=== PATIENT | male | born 1950 | race Caucasian/White ===

== ENCOUNTER 2016-11-22 06:31 | Day surgery (SDC) | payer MEDICARE ==
[~2016-11-22] VITALS: Ht 177.8 cm; Wt 97.7 kg
[~2016-11-22 06:31] MED LIST: AMOXICILLIN500 M1 PO; ASPIRIN EC81 M1 PO; BAYER CHEWABLE81 MG PO; BETAPACE 120 M120 MG PO; BETAPACE 80 MG80 MG PO; BETAPACE160 MG; BUPRENEX IV; CALCIUM 600+D T1 TA1 PO; CARDURA2 MG PO; CARDURA4 MG PO; CATAPRES0.1 MG PO; CATAPRES0.2 MG PO; DESERYL100 MG PO; DILAUDID2 MG PO; ELIQUIS2.5 MG PO; FE C TABLET1 TAB PO; GABAPENTIN100 MG PO; HUMALOG 30100 UNITS/ SC; HYDRALAZINE HC100 MG PO; HYDRALAZINE HCL50 MG PO; HYDROCODONE-APA1 TAB PO; ISOSORBIDE DINI30 MG PO; LANTUS INSULIN10 ML SC; LASIX40 MG PO; LASIX80 MG PO; LEVAQUIN250 MG PO; LEVEMIR100 U/M1 SC; LEVEMIR100 U/M1 SQ; METOPROLOL TART50 MG PO; MUCINEX D1 TAB.SR . PO; MUCINEX600 MG PO; MUCOMYST 2800 MG/4 M PO; MULTI-DAY VITAM1 TAB PO; NEURONTIN 300300 MG PO; NORVASC10 MG PO; NOVOLOG100 U/M1 SC; NOVOLOG100 U/M1 SQ; PAMELOR10 MG PO; PLAVIX75 MG PO; PREDNISONE20 MG PO; PRILOSEC20 MG PO; PRINIVIL20 MG PO; PROZAC10 MG PO; ROCALTROL0.25 MCG PO; SODIUM BICARBO650 MG PO; TESSALON PERLE100 MG PO; ZAROXOLYN5 MG PO; ZESTRIL20 MG PO; [UNRECOGNIZED DRUG - REMARK]
[2016-11-22 08:14] VITALS: BP 132/69; Ht 177.8 cm; Wt 97.7 kg
[2016-11-22 08:21] LABS: BASOPHILS 0.3 % (0.0-2.0); EOSINOPHILS 2.1 % (0-7); HEMATOCRIT 40.8 % (42.0-54.0); IMMATURE GRANULOCYTES 0.6 % (0-5); MCHC 31.9 g/dL (31.0-37.0); MCV 87.9 fL (80.0-100.0); MEAN PLATELET VOLUME 9.8 fL (7.4-10.4); MONOCYTES 11.9 % (2-11); NEUTROPHILS 60.1 % (40-80); PLATELET COUNT 201 10x3/uL (130-400); RBC 4.64 10x6/uL (4.20-6.10); WBC 6.7 10x3/uL (4.8-10.8)
[2016-11-22 08:29] LABS: APTT 33.5 SECONDS (22.8-39.4); INR 1.01 (0.85-1.17); PROTIME 13.1 SECONDS (11.6-15.0)
[2016-11-22 08:35] LABS: ANION GAP 11.1 mmol/L (8-16); CALCIUM 8.4 mg/dL (8.5-10.1); CARBON DIOXIDE 33.2 mmol/L (21.0-32.0); CREATININE - SERUM 4.5 mg/dL (0.6-1.3); POTASSIUM - SERUM 4.3 mmol/L (3.5-5.1)
--- NOTE | 2016-11-22 10:38 | NUR ---
1030 RENAL DIET SERVED.
--- NOTE | 2016-11-22 10:44 | NUR ---
5415 LAKESHA LOCK APN PAGED RETURNED CALL, REPORT GIVEN, MAY RELEASE HOME.
--- NOTE | 2016-11-25 13:15 | OP ---
PATIENT NAME: NATHAN ALLAN JR MEDICAL RECORD: [id number] :51 LOCATION:[facility] ADMISSION DATE: SURGEON: JOSE STACY MD DATE OF OPERATION: 11/22/2016 PREOPERATIVE DIAGNOSES: 1. End-stage renal disease. 2. Coronary artery disease. 3. Hypertension. 4. Hypercholesterolemia. POSTOPERATIVE DIAGNOSES: 1. End-stage renal disease. 2. Coronary artery disease. 3. Hypertension. 4. Hypercholesterolemia. PROCEDURE: Laparoscopic peritoneal dialysis catheter placement. SURGEON: Jose Stacy MD REPORT OF PROCEDURE: The patient's abdomen was prepped and draped in sterile fashion. A Veress needle was inserted in the left upper quadrant and the abdomen was insufflated. A 5 mm Visiport trocar was inserted in the midline above the umbilicus. We visualized the Veress needle and saw there was no sign of any injury to bowel or surrounding structures and this was removed. Under direct visualization, a 5 mm trocar was placed in the left lateral abdomen. We then placed a 5-mm trocar in the right lateral abdomen, but this trocar went through the right lower quadrant and exited into the abdomen through the fascia at the midline. We then placed a grasper through this catheter and pulled out the 5-mm trocar. This grasper was used to hold on to a right-sided peritoneal dialysis catheter, which was pulled through the skin incisions and resting in good position in the stomach. The 2 cuffs were made sure to be in good position in the muscular tissue and then subcutaneous space. We then put the pigtail of the peritoneal dialysis catheter down into the pelvis and flushed it under direct visualization, it flushed and aspirated appropriately. We then sutured this into place with a 2-0 Prolene. The ports and insufflation were then removed. The skin incisions were then closed with subcutaneous 5-0 Monocryl and dressed appropriately. COMPLICATIONS: None. CONDITION: Stable. ANESTHESIA: General endotracheal. BLOOD LOSS: Minimal. TRANSINT:[id number] Voice Confirmation ID: [id number] DOCUMENT ID: [id number] OPERATIVE REPORT [id number] NATHAN ALLAN JR JOSE STACY MD at 1315 CC: SHERRY LEWIS MD and TY HEIN MD [id number] DICTATION DATE: 11/22/1637 SURGEON CHIEF: 11/22/[address] [facility] 11/22/16 [facility] [address] [place] [address]
== END 2016-11-22 12:45 | disposition home or self-care (01) ==
LOC: D.OPS 06:31
PROVIDERS: Surgery
DX: I12.0 Hypertensive chronic kidney disease with stage 5 chronic kidney disease or end stage renal disease (principal); N18.6 End stage renal disease; Z99.2 Dependence on renal dialysis; I25.10 Atherosclerotic heart disease of native coronary artery without angina pectoris; E78.00 Pure hypercholesterolemia, unspecified

== ENCOUNTER 2017-05-08 06:49 | Day surgery (SDC) | payer MEDICARE ==
[~2017-05-08] VITALS: Ht 177.8 cm; Wt 97.7 kg
[2017-05-08 08:08] LABS: BASOPHILS 0.3 % (0-2); EOSINOPHILS 1.7 % (0-7); HEMATOCRIT 39.6 % (42.0-54.0); HEMOGLOBIN 12.6 g/dL (13.5-17.5); IMMATURE GRANULOCYTES 0.8 % (0-5); LYMPHOCYTES 17.3 % (15-50); MCH 29.2 pg (26.0-34.0); MCHC 31.8 g/dL (31.0-37.0); MCV 91.7 fL (80.0-100.0); MONOCYTES 9.5 % (2-11); NEUTROPHILS 70.4 % (40-80); PLATELET COUNT 186 10x3/uL (130-400); RBC 4.32 10x6/uL (4.20-6.10); RDW 13.6 % (11.5-14.5); WBC 6.7 10x3/uL (4.8-10.8)
[2017-05-08 08:17] LABS: CALCIUM 7.8 mg/dL (8.5-10.1); CREATININE - SERUM 4.7 mg/dL (0.6-1.3)
[2017-05-08] MEDS ORDERED: FUROSEMIDE40 MG PO (09:24)
[2017-05-08 09:36] VITALS: Ht 177.8 cm; Wt 97.7 kg
--- NOTE | 2017-05-08 10:34 | NUR ---
1010 MILLI SAMPLE TO CLINIC FOR DIARRHIA
--- NOTE | 2017-05-08 11:19 | NUR ---
1105- PT ASK TO GO TO BATHROOM PIV DC CATHETER TIP INTACT ASSIST UP USING CANE ABULATED WELL
--- NOTE | 2017-05-08 11:38 | NUR ---
PT LEFT VIA WC BY VOLUNTEER TO OP DOOR WITH DAUGHTER WAITING
--- NOTE | 2017-05-08 15:57 | OP ---
PATIENT NAME: NATHAN ALLAN JR MEDICAL RECORD: [id number] :51 LOCATION:[facility] ADMISSION DATE: SURGEON: JULIA FRYE DO DATE OF OPERATION: 05/08/2017 PROCEDURE: Colonoscopy with snare polypectomy and biopsies. INDICATIONS FOR PROCEDURE: Diarrhea and lower abdominal pain. SCOPE: Olympus video pediatric colonoscope. MEDICATIONS: Propofol 450 mg IV per anesthesia. WITHDRAWAL TIME: 17 minutes. ESTIMATED BLOOD LOSS: Minimal. COMPLICATIONS: None. FINDINGS: Informed consent was given. The patient was made comfortable with the above medication. After reaching an adequate level of sedation by slow IV push, the patient was placed on his left side. A digital rectal examination was performed and was normal. The endoscope was then advanced under direct visualization through the rectum to the terminal ileum. The scope was slowly withdrawn and mucosa was carefully examined. The prep was fair to good. There were a few small mouth diverticula noted in the right side of the colon as well as the transverse colon, descending and sigmoid colon. This was of very mild severity. There was a single polyp which measured approximately 14 mm in size located in the rectosigmoid colon at 15 cm. It was removed in 1 piece with a snare polypectomy with cautery. The polyp was completely retrieved. Retroflexion was performed in the rectum with a normal in appearance. There were no other findings on this examination. Random biopsies and stool collection was obtained to send for further studies to rule out infectious colitis as well as microscopic colitis. The endoscope is withdrawn from the patient. The patient tolerated the procedure well and there were no complications. IMPRESSIONS: 1. Mild pandiverticulosis. 2. A single rectosigmoid polyp measuring approximately 14 mm in size, which was removed with hot snare polypectomy. PLAN AND RECOMMENDATIONS: 1. Discharge home when recovery parameters are met. 2. High fiber diet. 3. Continue current medications. 4. Follow up results of biopsy specimens and pathology of polyp removed. 5. Recall colonoscopy dependent on pathology of the polyp removed. 6. Okay to use Imodium as needed until biopsies return with further recommendations to follow infectious studies and biopsy results. TRANSINT:[id number] Voice Confirmation ID: [id number] DOCUMENT ID: [id number] OPERATIVE REPORT [id number] NATHAN ALLAN JR JULIA FRYE DO at 1557 CC: [id number] DICTATION DATE: 05/08/17 1048 PROFESSOR IN FAMILY STUDIES: 05/08/17 1224 [facility] [place] 05/08/[address] [facility] [address] [id number]
== END 2017-05-08 11:35 | disposition home or self-care (01) ==
LOC: D.OPS 06:49
PROVIDERS: Anesthesiology
DX: D12.7 Benign neoplasm of rectosigmoid junction (principal); R19.7 Diarrhea, unspecified; I25.10 Atherosclerotic heart disease of native coronary artery without angina pectoris; E11.22 Type 2 diabetes mellitus with diabetic chronic kidney disease; N18.6 End stage renal disease; Z95.5 Presence of coronary angioplasty implant and graft; Z95.1 Presence of aortocoronary bypass graft; Z01.812 Encounter for preprocedural laboratory examination

== ENCOUNTER 2017-05-31 05:27 | Emergency (ER) | payer MEDICARE ==
[2017-05-08 09:36] VITALS: BMI 30.9
[~2017-05-31 05:27] MED LIST changes: +FUROSEMIDE40 MG PO
[2017-05-31 06:20] LABS: BASOPHILS 0.4 % (0-2); EOSINOPHILS 2.1 % (0-7); HEMATOCRIT 40.2 % (42.0-54.0); IMMATURE GRANULOCYTES 0.9 % (0-5); LYMPHOCYTES 17.1 % (15-50); MCH 29.2 pg (26.0-34.0); MCHC 32.3 g/dL (31.0-37.0); MCV 90.3 fL (80.0-100.0); MEAN PLATELET VOLUME 9.8 fL (7.4-10.4); MONOCYTES 10.7 % (2-11); NEUTROPHILS 68.8 % (40-80); PLATELET COUNT 179 10x3/uL (130-400); RBC 4.45 10x6/uL (4.20-6.10); RDW 13.7 % (11.5-14.5)
[2017-05-31 06:46] LABS: ALBUMIN 2.9 g/dL (3.4-5.0); ANION GAP 15.6 mmol/L (8-16); BILIRUBIN - TOTAL 0.2 mg/dL (0.2-1.3); CALCIUM 7.4 mg/dL (8.5-10.1); CARBON DIOXIDE 23.6 mmol/L (21.0-32.0); CREATININE - SERUM 4.3 mg/dL (0.6-1.3); POTASSIUM - SERUM 5.2 mmol/L (3.5-5.1); PROTEIN - SERUM 5.8 g/dL (6.4-8.2)
[2017-05-31 06:47] LABS: APPEARANCE CLEAR (CLEAR); BACTERIA FEW /hpf (NONE SEEN); BILIRUBIN NEGATIVE (NEGATIVE); COLOR YELLOW (YELLOW); EPITHELIAL CELLS OCC /hpf (0-5); GLUCOSE 50 mg/dL (NEGATIVE); HYALINE CAST RARE /lpf (NONE SEEN); KETONE NEGATIVE (NEGATIVE); LEUKOCYTE ESTERASE NEGATIVE (NEGATIVE); MUCUS <1+ /lpf (NONE SEEN); NITRITE NEGATIVE (NEGATIVE); PROTEIN 3+ mg/dL (NEGATIVE); RED CELLS - URINE 0-5 /hpf (0-5); SPECIFIC GRAVITY 1.015 (1.005-1.020); UROBILINOGEN NORMAL (NORMAL); WHITE CELLS - URINE OCC /hpf (0-5)
[2017-05-31 14:10] LABS: EOS BF 1 %; LYMPH - BF 5 %; MACROPHAGES BF 81 %; NEUT - BF 13 %
== END 2017-05-31 14:57 | disposition home or self-care (01) ==
LOC: D.ER 05:27
PROVIDERS: Emergency Medicine; Family Medicine
DX: R10.9 Unspecified abdominal pain (principal); I45.10 Unspecified right bundle-branch block; R94.31 Abnormal electrocardiogram [ECG] [EKG]

== ENCOUNTER 2017-11-13 15:17 | Inpatient (IN) | payer MEDICARE ==
[~2017-11-13] VITALS: Ht 177.8 cm; Wt 95.3 kg
--- NOTE | ~2017-11-13 | OP ---
PATIENT NAME: NATHAN ALLAN JR MEDICAL RECORD: [id number] :51 LOCATION:D.M2 D.2107 ADMISSION DATE:11/13/17 SURGEON: TOÑO STACY MD DATE OF OPERATION: 11/21/2017 PREOPERATIVE DIAGNOSES: 1. Left wrist foreign body. 2. Right lower quadrant subcutaneous tender mass. 3. End-stage renal disease. 4. Diabetes mellitus. 5. Coronary artery disease. 6. Hyperlipidemia. 7. Anemia of chronic disease. POSTOPERATIVE DIAGNOSES: 1. Left wrist foreign body. 2. Right lower quadrant subcutaneous tender mass. 3. End-stage renal disease. 4. Diabetes mellitus. 5. Coronary artery disease. 6. Hyperlipidemia. 7. Anemia of chronic disease. PROCEDURE: 1. Excision of left wrist foreign body (Prolene suture). 2. Excision of right lower quadrant scar. SURGEON: Toño Stacy MD REPORT OF PROCEDURE: The patient's abdomen and left wrist were prepped and draped in sterile fashion. We approached the abdomen first. A transverse incision was made overlying the area of the tender mass that was in the right lower quadrant about 3 cm above the peritoneal dialysis catheter. The transverse incision was made overlying this and using sharp dissection and electrocautery, we dissected around the subcutaneous fatty tissue including the scar. This scar extended from the skin all the way down to the anterior fascial layer. On top of the fascia, there was a very firm layer of scar that was almost calcified. We went ahead and removed all of this tissue until there was a normal appearing fashion and good surrounding fatty tissue. The specimen was sent off to pathology. An approximately 0.5-cm opening was made in the fascia to remove all this tissue. This fascia was then closed with an interrupted 0 Vicryl in a [id number] fashion. We then irrigated out the wound with normal saline and infused a total of 10 mL of 0.25% Marcaine with epinephrine. The subcutaneous tissues were reapproximated with interrupted 3-0 Vicryl and the skin was closed with running subcutaneous 5-0 Monocryl. We then approached the left wrist. A longitudinal incision was made overlying the palpable mass. As we dissected through the subcutaneous tissues, we encountered a Prolene suture. This suture was pushing up against the posterior aspect of the skin. The Prolene suture was dissected down and excised completely. There was another area of calcified scar tissue that was present in the wrist and this was removed using electrocautery. At the conclusion of the case, there was no sign of any further calcified lesions or sutures visible. There was no sign of any active bleeding. At this point, the subcutaneous tissues were irrigated out and reapproximated with an interrupted 3-0 Vicryl. The skin was then closed with running subcutaneous 5-0 Monocryl and infused with 5 mL of 0.25% Marcaine with OPERATIVE REPORT [id number] NATHAN ALLAN JR epinephrine. Dressing was then applied. COMPLICATIONS: None. CONDITION: Stable. ANESTHESIA: General endotracheal and local. BLOOD LOSS: Minimal. TRANSINT:[id number] Voice Confirmation ID: [id number] DOCUMENT ID: [id number] TOÑO STACY MD at 0956 CC: [id number] DICTATION DATE: 11/21/17 1432 CUFF STITCHER: 11/21/17 1443 DIS IN 11/22/17 [id number] [place] [address]
[2017-11-13 15:51] LABS: BASOPHILS 0.2 % (0-2); EOSINOPHILS 1.4 % (0-7); HEMATOCRIT 43.1 % (42.0-54.0); IMMATURE GRANULOCYTES 0.6 % (0-5); LYMPHOCYTES 12.9 % (15-50); MCH 28.9 pg (26.0-34.0); MCHC 32.5 g/dL (31.0-37.0); MEAN PLATELET VOLUME 9.3 fL (7.4-10.4); MONOCYTES 9.2 % (2-11); NEUTROPHILS 75.7 % (40-80); PLATELET COUNT 212 10x3/uL (130-400); RBC 4.84 10x6/uL (4.20-6.10); RDW 13.7 % (11.5-14.5); WBC 15.1 10x3/uL (4.8-10.8)
[2017-11-13 16:06] LABS: ALBUMIN 2.7 g/dL (3.4-5.0); BILIRUBIN - TOTAL 0.19 mg/dL (0.2-1.3); CALCIUM 8.2 mg/dL (8.5-10.1); CARBON DIOXIDE 29.1 mmol/L (21.0-32.0); CREATININE - SERUM 5.1 mg/dL (0.6-1.3); POTASSIUM - SERUM 4.1 mmol/L (3.5-5.1); PROTEIN - SERUM 6.7 g/dL (6.4-8.2)
[2017-11-13 16:40] LABS: AMYLASE - SERUM 52 U/L (25-115); LIPASE 135 U/L (73-393)
[2017-11-13 23:12] VITALS: BP 166/80; BMI 30.8
[2017-11-14 02:43] LABS: EOS BF 2 %; MACROPHAGES BF 79 %; NEUT - BF 11 %
[2017-11-14 04:00] VITALS: BP 152/69
[2017-11-14 09:09] LABS: APPEARANCE CLEAR (CLEAR); COLOR YELLOW (YELLOW); GLUCOSE 1000 mg/dL (NEGATIVE); NITRITE NEGATIVE (NEGATIVE); PROTEIN 1+ mg/dL (NEGATIVE); SPECIFIC GRAVITY 1.015 (1.005-1.020)
[2017-11-14 09:10] LABS: BACTERIA FEW /hpf (NONE SEEN); BILIRUBIN NEGATIVE (NEGATIVE); EPITHELIAL CELLS 0-5 /hpf (0-5); KETONE NEGATIVE (NEGATIVE); MUCUS <1+ /lpf (NONE SEEN); RED CELLS - URINE OCC /hpf (0-5); UROBILINOGEN NORMAL (NORMAL); WHITE CELLS - URINE 0-5 /hpf (0-5)
[2017-11-14 10:18] VITALS: BP 159/58
[2017-11-14 12:22] VITALS: BMI 30.7
[2017-11-14] MEDS ORDERED: WELCHOL625 MG PO (13:39)
[2017-11-14 13:53] VITALS: Ht 177.8 cm; Wt 95.3 kg
[2017-11-14 17:37] VITALS: BP 149/66
[2017-11-14 17:51] VITALS: BP 126/61
[2017-11-14 20:15] LABS: EOS BF 1 %; MACROPHAGES BF 71 %; MESOTHELIALS BF 1 %; NEUT - BF 18 %
[2017-11-14 22:33] VITALS: BP 180/68
[2017-11-15 04:40] VITALS: BP 181/69
[2017-11-15 05:40] LABS: HEMATOCRIT 40.7 % (42.0-54.0); HEMOGLOBIN 13.3 g/dL (13.5-17.5); MCHC 32.7 g/dL (31.0-37.0); MCV 88.7 fL (80.0-100.0); MEAN PLATELET VOLUME 9.4 fL (7.4-10.4); PLATELET COUNT 192 10x3/uL (130-400); RBC 4.59 10x6/uL (4.20-6.10); RDW 13.6 % (11.5-14.5); WBC 11.7 10x3/uL (4.8-10.8)
[2017-11-15 06:54] LABS: EOSINOPHILS 4 % (0-7); LYMPHOCYTES 15 % (15-50); MONOCYTES 6 % (2-11); NEUTROPHILS 72 % (40-80); PLATELET ESTIMATE NORMAL
[2017-11-15 06:55] LABS: ROULEAUX OCC
[2017-11-15 07:26] LABS: ALBUMIN 2.1 g/dL (3.4-5.0); ANION GAP 14.3 mmol/L (8-16); BILIRUBIN - TOTAL 0.23 mg/dL (0.2-1.3); CALCIUM 7.3 mg/dL (8.5-10.1); CARBON DIOXIDE 28.1 mmol/L (21.0-32.0); CREATININE - SERUM 4.7 mg/dL (0.6-1.3); POTASSIUM - SERUM 4.4 mmol/L (3.5-5.1); PROTEIN - SERUM 5.9 g/dL (6.4-8.2)
[2017-11-15 07:57] VITALS: BP 173/73
[2017-11-15 11:19] VITALS: BP 192/76
[2017-11-15 15:54] VITALS: BP 160/080
[2017-11-15 21:44] VITALS: BP 167/65
[2017-11-16 04:47] VITALS: BP 125/36
[2017-11-16 07:49] VITALS: BP 166/67
[2017-11-16 11:48] VITALS: BP 123/82
[2017-11-16 16:18] VITALS: BP 181/71
[2017-11-16 21:03] VITALS: BP 174/66
[2017-11-16 23:54] VITALS: BP 138/67
[2017-11-17 04:49] VITALS: BP 136/58
[2017-11-17 05:47] LABS: BASOPHILS 0.4 % (0-2); EOSINOPHILS 2.5 % (0-7); HEMATOCRIT 36.5 % (42.0-54.0); HEMOGLOBIN 11.9 g/dL (13.5-17.5); IMMATURE GRANULOCYTES 1.7 % (0-5); LYMPHOCYTES 20.5 % (15-50); MCH 28.7 pg (26.0-34.0); MCHC 32.6 g/dL (31.0-37.0); MEAN PLATELET VOLUME 9.3 fL (7.4-10.4); MONOCYTES 10.9 % (2-11); PLATELET COUNT 197 10x3/uL (130-400); RBC 4.15 10x6/uL (4.20-6.10); RDW 13.6 % (11.5-14.5); WBC 9.2 10x3/uL (4.8-10.8)
[2017-11-17 06:10] LABS: CARBON DIOXIDE 29.7 mmol/L (21.0-32.0); CREATININE - SERUM 5.1 mg/dL (0.6-1.3); VANCOMYCIN - TROUGH 15.2 ug/mL (10.0-20.0)
[2017-11-17 06:25] LABS: POTASSIUM - SERUM 3.7 mmol/L (3.5-5.1)
[2017-11-17 06:30] LABS: CALCIUM 6.9 mg/dL (8.5-10.1)
[2017-11-17 08:01] VITALS: BP 146/73
[2017-11-17 12:14] LABS: FUNGUS STAIN Final report (())
[2017-11-17 12:33] VITALS: BP 160/65
[2017-11-17 16:06] VITALS: BP 148/67
[2017-11-17 19:00] VITALS: BP 172/79
[2017-11-18 04:00] VITALS: BP 139/64
[2017-11-18 06:46] LABS: BASOPHILS 0.6 % (0-2); EOSINOPHILS 2.2 % (0-7); HEMATOCRIT 41.6 % (42.0-54.0); HEMOGLOBIN 13.5 g/dL (13.5-17.5); IMMATURE GRANULOCYTES 3.2 % (0-5); LYMPHOCYTES 21.7 % (15-50); MCH 28.8 pg (26.0-34.0); MCHC 32.5 g/dL (31.0-37.0); MCV 88.7 fL (80.0-100.0); MEAN PLATELET VOLUME 9.5 fL (7.4-10.4); MONOCYTES 10.3 % (2-11); RBC 4.69 10x6/uL (4.20-6.10); RDW 13.8 % (11.5-14.5); WBC 10.3 10x3/uL (4.8-10.8)
[2017-11-18 06:56] LABS: ANION GAP 12.2 mmol/L (8-16); CARBON DIOXIDE 28.9 mmol/L (21.0-32.0); CREATININE - SERUM 5.5 mg/dL (0.6-1.3); POTASSIUM - SERUM 4.1 mmol/L (3.5-5.1)
[2017-11-18 07:00] LABS: PLATELET COUNT 252 10x3/uL (130-400)
[2017-11-18 07:01] LABS: CALCIUM 6.9 mg/dL (8.5-10.1)
[2017-11-18 07:43] VITALS: BP 138/76
[2017-11-18 11:53] VITALS: BP 163/69
[2017-11-18 15:52] VITALS: BP 143/66
[2017-11-18 21:26] VITALS: BP 154/74
[2017-11-19 01:29] VITALS: BP 169/71
[2017-11-19 05:36] LABS: BASOPHILS 0.5 % (0-2); EOSINOPHILS 1.9 % (0-7); HEMATOCRIT 40.6 % (42.0-54.0); HEMOGLOBIN 13.1 g/dL (13.5-17.5); IMMATURE GRANULOCYTES 4.1 % (0-5); LYMPHOCYTES 18.6 % (15-50); MCH 28.5 pg (26.0-34.0); MCHC 32.3 g/dL (31.0-37.0); MCV 88.5 fL (80.0-100.0); MEAN PLATELET VOLUME 9.3 fL (7.4-10.4); MONOCYTES 10.1 % (2-11); NEUTROPHILS 64.8 % (40-80); PLATELET COUNT 243 10x3/uL (130-400); RBC 4.59 10x6/uL (4.20-6.10); RDW 13.8 % (11.5-14.5); WBC 11.1 10x3/uL (4.8-10.8)
[2017-11-19 05:57] LABS: ANION GAP 14.2 mmol/L (8-16); CARBON DIOXIDE 26.3 mmol/L (21.0-32.0); CREATININE - SERUM 6.1 mg/dL (0.6-1.3); POTASSIUM - SERUM 4.5 mmol/L (3.5-5.1); VANCOMYCIN - RANDOM 19.3 ug/mL (10.0-20.0)
[2017-11-19 06:00] LABS: CALCIUM 6.9 mg/dL (8.5-10.1)
[2017-11-19 08:22] VITALS: BP 128/75
[2017-11-19 12:55] VITALS: BP 122/58
[2017-11-19 16:25] VITALS: BP 152/74
[2017-11-19 21:27] VITALS: BP 150/65
[2017-11-20 01:46] VITALS: BP 103/50
[2017-11-20 05:40] VITALS: BP 127/76
[2017-11-20 06:25] LABS: BASOPHILS 0.4 % (0-2); EOSINOPHILS 1.7 % (0-7); HEMATOCRIT 43.3 % (42.0-54.0); IMMATURE GRANULOCYTES 5.1 % (0-5); LYMPHOCYTES 21.1 % (15-50); MCH 28.7 pg (26.0-34.0); MCHC 32.3 g/dL (31.0-37.0); MCV 88.9 fL (80.0-100.0); MEAN PLATELET VOLUME 9.3 fL (7.4-10.4); MONOCYTES 10.7 % (2-11); PLATELET COUNT 275 10x3/uL (130-400); RBC 4.87 10x6/uL (4.20-6.10); RDW 13.9 % (11.5-14.5); WBC 11.5 10x3/uL (4.8-10.8)
[2017-11-20 06:53] LABS: ALBUMIN 2.2 g/dL (3.4-5.0); ANION GAP 16.1 mmol/L (8-16); BILIRUBIN - DIRECT 0.06 mg/dL (0.00-0.30); BILIRUBIN - INDIRECT 0.19 mg/dL (0.00-1.00); BILIRUBIN - TOTAL 0.25 mg/dL (0.2-1.3); CALCIUM 7.7 mg/dL (8.5-10.1); CARBON DIOXIDE 27.6 mmol/L (21.0-32.0); CREATININE - SERUM 6.6 mg/dL (0.6-1.3); POTASSIUM - SERUM 4.7 mmol/L (3.5-5.1); PROTEIN - SERUM 6.6 g/dL (6.4-8.2); VANCOMYCIN - RANDOM 26.7 ug/mL (10.0-20.0)
[2017-11-20 08:49] VITALS: BP 134/68
[2017-11-20 12:52] VITALS: BP 136/63
[2017-11-20 16:14] VITALS: BP 138/76
[2017-11-20 19:00] VITALS: BP 116/51
[2017-11-21 04:00] VITALS: BP 134/71
[2017-11-21 06:20] LABS: BASOPHILS 0.6 % (0-2); EOSINOPHILS 1.3 % (0-7); HEMATOCRIT 39.3 % (42.0-54.0); HEMOGLOBIN 12.7 g/dL (13.5-17.5); IMMATURE GRANULOCYTES 4.9 % (0-5); LYMPHOCYTES 23.2 % (15-50); MCH 28.7 pg (26.0-34.0); MCHC 32.3 g/dL (31.0-37.0); MCV 88.7 fL (80.0-100.0); MONOCYTES 10.3 % (2-11); NEUTROPHILS 59.7 % (40-80); PLATELET COUNT 260 10x3/uL (130-400); RBC 4.43 10x6/uL (4.20-6.10); RDW 13.7 % (11.5-14.5); WBC 11.3 10x3/uL (4.8-10.8)
[2017-11-21 06:27] LABS: ANION GAP 16.4 mmol/L (8-16); CARBON DIOXIDE 26.3 mmol/L (21.0-32.0); CREATININE - SERUM 7.9 mg/dL (0.6-1.3); PHOSPHOROUS 6.7 mg/dL (2.5-4.9); POTASSIUM - SERUM 4.7 mmol/L (3.5-5.1); VANCOMYCIN - RANDOM 21.1 ug/mL (10.0-20.0)
[2017-11-21 08:00] VITALS: BP 101/59
[2017-11-21 13:48] VITALS: BP 106/56
[2017-11-21 17:04] VITALS: BP 123/54
[2017-11-21 17:11] LABS: HEPATITIS C ANTIBODY <0.1 (0.0-0.9)
[2017-11-21 20:46] VITALS: BP 154/64
[2017-11-21 23:44] VITALS: BP 78/47
[2017-11-22 04:46] VITALS: BP 115/60
[2017-11-22 05:36] LABS: BASOPHILS 0.6 % (0-2); HEMOGLOBIN 13.5 g/dL (13.5-17.5); IMMATURE GRANULOCYTES 4.3 % (0-5); LYMPHOCYTES 16.8 % (15-50); MCH 28.7 pg (26.0-34.0); MCHC 32.1 g/dL (31.0-37.0); MCV 89.2 fL (80.0-100.0); MEAN PLATELET VOLUME 9.2 fL (7.4-10.4); MONOCYTES 10.4 % (2-11); NEUTROPHILS 66.9 % (40-80); PLATELET COUNT 275 10x3/uL (130-400); RBC 4.71 10x6/uL (4.20-6.10); RDW 13.7 % (11.5-14.5); WBC 12.5 10x3/uL (4.8-10.8)
[2017-11-22 06:15] LABS: ANION GAP 15.4 mmol/L (8-16); CALCIUM 7.2 mg/dL (8.5-10.1); CARBON DIOXIDE 25.7 mmol/L (21.0-32.0); CREATININE - SERUM 8.5 mg/dL (0.6-1.3); POTASSIUM - SERUM 5.1 mmol/L (3.5-5.1); VANCOMYCIN - RANDOM 23.9 ug/mL (10.0-20.0)
[2017-11-22 09:33] VITALS: BP 114/55
[2017-12-13 09:17] LABS: FUNGUS MYCOLOGY CULTURE Final report (())
== END 2017-11-22 12:03 | disposition home or self-care (01) | DRG 901 ==
LOC: D.ER 15:17 → D.M2 17:57
PROVIDERS: Family Medicine; Internal Medicine; Internal Medicine Nephrology; Surgery
PROC: 0JB80ZZ Excision of Abdomen Subcutaneous Tissue and Fascia, Open Approach (ICD-10-PCS; 2017-11-21)
PROC: 0HCEXZZ Extirpation of Matter from Left Lower Arm Skin, External Approach (ICD-10-PCS; principal; 2017-11-21 11:00)
DX: T85.71XA Infection and inflammatory reaction due to peritoneal dialysis catheter, initial encounter (principal); K65.9 Peritonitis, unspecified; N18.6 End stage renal disease; I12.0 Hypertensive chronic kidney disease with stage 5 chronic kidney disease or end stage renal disease; E11.22 Type 2 diabetes mellitus with diabetic chronic kidney disease; Z99.2 Dependence on renal dialysis; E78.5 Hyperlipidemia, unspecified; I25.10 Atherosclerotic heart disease of native coronary artery without angina pectoris; R16.2 Hepatomegaly with splenomegaly, not elsewhere classified; M79.5 Residual foreign body in soft tissue; K59.00 Constipation, unspecified; K21.9 Gastro-esophageal reflux disease without esophagitis; L90.5 Scar conditions and fibrosis of skin; D63.1 Anemia in chronic kidney disease; D50.0 Iron deficiency anemia secondary to blood loss (chronic); Z95.5 Presence of coronary angioplasty implant and graft; Z95.2 Presence of prosthetic heart valve

== ENCOUNTER 2018-01-18 07:23 | Day surgery (SDC) | payer MEDICARE ==
[~2018-01-18] VITALS: Ht 177.8 cm; Wt 97.5 kg
--- NOTE | ~2018-01-18 | OP ---
PATIENT NAME: NATHAN ALLAN JR MEDICAL RECORD: [id number] :51 LOCATION:[facility] ADMISSION DATE: SURGEON: JOSE STACY MD DATE OF OPERATION: 01/18/2018 PREOPERATIVE DIAGNOSES: 1. Malfunctioning left upper extremity AV fistula. 2. End-stage renal disease. 3. Tobacco dependence syndrome. 4. Diabetes mellitus. 5. Coronary artery disease. POSTOPERATIVE DIAGNOSES: 1. Malfunctioning left upper extremity AV fistula. 2. End-stage renal disease. 3. Tobacco dependence syndrome. 4. Diabetes mellitus. 5. Coronary artery disease. PROCEDURE: 1. Ligation of left upper extremity AV fistula. 2. Right upper extremity brachio to antecubital AV fistula placement. SURGEON: Jose Stacy MD REPORT OF PROCEDURE: The patient's bilateral upper extremities were prepped and draped in sterile fashion. Using ultrasound guidance, I was able to locate the area of the anastomosis of the fistula at the left elbow. I made an incision in the left antecubital space overlying the fistula. I was able to dissect around the fistula vein. A suture was placed around it and the fistula was ligated. At this point, there was discontinuation of the palpable thrill. We then closed the tissue over top using 3-0 Vicryls and subcutaneous 5-0 Monocryl. At that point, we went over to the right upper extremity. Using ultrasound guidance, I was able to localize the patient's right cephalic vein extending down to the patient's antecubital space and this vein appeared to be open and patent. The vein was palpable. A transverse incision was made over the medial aspect of the patient's right antecubital space. Electrocautery was used to dissect through the subcutaneous tissue and we came down to the antecubital veins. There were branches going off in all directions. We then dissected underneath this and found the patient's brachial artery, he had a large brachial artery. We were able to place vessel loops around the brachial artery on each side. The patient's cephalic vein was then transected and a portion of the antecubital vein was incorporated with this. Any branches that were coming off of this were ligated with 3-0 silks. At this point, we gave the patient 5000 units of heparin IV and an arteriotomy was placed in the most distal brachial vein until it branched. The anastomosis was performed with running 7-0 Prolenes. At the conclusion of the case, there was no sign of any active bleeding and there was a good palpable thrill through the fistula. The patient had a branch coming off the cephalic vein just proximal to the antecubital space. So, a longitudinal incision was made overlying this and this branch was ligated with 3-0 Vicryl proximally and distally and ligated. At this point, we irrigated out the wounds with normal saline and assured there was no sign of any bleeding, which there was none. The subcutaneous tissues were reapproximated with interrupted 3-0 Vicryls and the skin was closed with running subcutaneous 5-0 Monocryl. OPERATIVE REPORT [id number] NATHAN ALLAN JR COMPLICATIONS: None. CONDITION: Stable. ANESTHESIA: General endotracheal. BLOOD LOSS: 50 mL. TRANSINT:[id number] Voice Confirmation ID: [id number] DOCUMENT ID: [id number] JOSE STACY MD at 1319 CC: SHIVA MCCRAY [id number] DICTATION DATE: 01/18/18 1324 DENTAL CERAMIST: 01/18/[address] [facility] 01/18/18 [id number] [place] [address]
[~2018-01-18 07:23] MED LIST changes: +OMEPRAZOLE40 MG PO; -PRILOSEC20 MG PO; +WELCHOL625 MG PO
[2018-01-18 09:14] VITALS: BP 175/95; Ht 177.8 cm; Wt 97.5 kg
[2018-01-18 09:38] LABS: BASOPHILS 0.5 % (0-2); EOSINOPHILS 1.7 % (0-7); HEMOGLOBIN 12.9 g/dL (13.5-17.5); IMMATURE GRANULOCYTES 1.3 % (0-5); LYMPHOCYTES 20.6 % (15-50); MCH 28.4 pg (26.0-34.0); MCHC 32.3 g/dL (31.0-37.0); MCV 88.1 fL (80.0-100.0); MEAN PLATELET VOLUME 9.6 fL (7.4-10.4); MONOCYTES 9.4 % (2-11); NEUTROPHILS 66.5 % (40-80); PLATELET COUNT 220 10x3/uL (130-400); RBC 4.54 10x6/uL (4.20-6.10); WBC 9.2 10x3/uL (4.8-10.8)
[2018-01-18 09:43] LABS: CARBON DIOXIDE 26.1 mmol/L (21.0-32.0); CREATININE - SERUM 4.8 mg/dL (0.6-1.3); POTASSIUM - SERUM 5.1 mmol/L (3.5-5.1)
[2018-01-18] MEDS ORDERED: HYDROCODONE-APA1 TAB PO (13:19)
== END 2018-01-18 15:30 | disposition home or self-care (01) ==
LOC: D.OPS 07:23
PROVIDERS: Surgery
DX: T82.898A Other specified complication of vascular prosthetic devices, implants and grafts, initial encounter (principal); E11.22 Type 2 diabetes mellitus with diabetic chronic kidney disease; I12.0 Hypertensive chronic kidney disease with stage 5 chronic kidney disease or end stage renal disease; N18.6 End stage renal disease; Z99.2 Dependence on renal dialysis; K21.9 Gastro-esophageal reflux disease without esophagitis; Z01.812 Encounter for preprocedural laboratory examination

== ENCOUNTER → 2018-02-07 09:43 | Outpatient (CLI) | payer MEDICARE ==
[2018-01-18 09:14] VITALS: BMI 30.9
[~2018-02-07 09:43] MED LIST changes: +COLACE100 MG PO; +DULCOLAX5 MG PO; +HUMULIN R100 U/ML SC; +OMNICEF300 MG PO; +PERCOCET 10/3251 TA1 PO; +PROTONIX40 MG PO; +TUMS500 MG PO; +VELTASSA8.4 GM PO; +[UNRECOGNIZED DRUG - OTHER]
== END | disposition home or self-care (01) ==
LOC: D.US 09:43
DX: R60.0 Localized edema (principal); I99.9 Unspecified disorder of circulatory system

== ENCOUNTER 2018-03-19 22:09 | Inpatient (IN) | payer MEDICARE ==
[~2018-03-19] VITALS: Ht 177.8 cm; Wt 110.0 kg
--- NOTE | ~2018-03-19 | OP ---
PATIENT NAME: NATHAN ALLAN JR MEDICAL RECORD: [id number] :51 LOCATION:[facility] D.2308 ADMISSION DATE:03/19/18 SURGEON: ASHVIN SZYMANSKI MD DATE OF OPERATION: 03/23/2018 PREOPERATIVE DIAGNOSIS: Displaced femoral neck fracture of the right hip. POSTOPERATIVE DIAGNOSIS: Displaced femoral neck fracture of the right hip. PROCEDURE: Bipolar endoprosthesis of the right hip for displaced femoral neck fracture. SURGEON: Ashvin Szymanski MD ANESTHESIA: General. INTRAOPERATIVE COMPLICATIONS: None. SUMMARY OF PATHOLOGIC FINDINGS: The patient has displaced femoral neck fracture consistent with preoperative diagnosis. ESTIMATED BLOOD LOSS: 200 cc. IMPLANTS USED: [place] Anato hip stem size 5 with a 52 bipolar head and a standard 26 mm inner head. OPERATIVE SUMMARY IN DETAIL: After obtaining the appropriate preoperative orthopedic surgery consent as well as anesthetic consultation, evaluation, and clearance, the patient was brought to the operating room and placed on the operating table in supine position. After general laryngeal mask was administered, the patient was placed in left lateral decubitus position. All pressure points were padded to include down leg peroneal pad as well as axillary roll. The patient was held firmly to the operating table using the vacuum pack suction system. The patient's right lower extremity and hip were then prepped and draped in routine sterile fashion. Curvilinear incision was made over the greater trochanter taken down to the level of IT band was split in line with fibers of the IT band to reveal gluteus medius minimus. These were reflected anteriorly and saved for later reapproximation. The hip capsule was split in a T-type fashion as well. Fracture hematoma was evacuated. Femoral neck cut was made using the Anato femoral neck cutting guide. This was followed by extraction of the femoral head. The acetabulum was then cleaned free of any debris and irrigated. Attention was then turned to the proximal femur. Serial and sequential reaming and broaching were done for a size 5 Anato hip stem. Anato hip stem was put into place. Trials were undertaken. It was felt that the standard 52 was the most appropriate. This was tamped on the Bass taper, reduced, taken through range of motion and found to be stable in all planes. Hip capsule was closed with #2 Ethibond followed by #5 reapproximation of the gluteus medius and minimus back to the greater trochanter in a transosseous fashion, followed by closure of the IT band with 2-0 Ethibond followed by #1 Vicryl, 2-0 Vicryl, and skin ella. Sterile dressings were applied. The patient was awakened and was taken to recovery in stable condition. All final needle and sponge counts were correct. TRANSINT:[id number] Voice Confirmation ID: [id number] DOCUMENT ID: [id number] OPERATIVE REPORT [id number] NATHAN ALLAN JR, MD, ASHVIN SHANNON at 0721 CC: [id number] DICTATION DATE: 03/23/18 1018 TEXTILE TECHNICAL OFFICER: 03/23/18 1440 ADM IN [facility] [address] [place] [address]
[~2018-03-19 22:09] MED LIST changes: -COLACE100 MG PO; -DULCOLAX5 MG PO; -HUMULIN R100 U/ML SC; -OMNICEF300 MG PO; -PERCOCET 10/3251 TA1 PO; -PROTONIX40 MG PO; -TUMS500 MG PO; -VELTASSA8.4 GM PO; -[UNRECOGNIZED DRUG - OTHER]
[2018-03-19] MEDS ORDERED: PLAVIX75 MG PO (23:52)
[2018-03-20] VITALS: BP 172/70
[2018-03-20 04:00] VITALS: BP 171/78
[2018-03-20 05:14] LABS: BASOPHILS 0.3 % (0-2); EOSINOPHILS 1.5 % (0-7); HEMATOCRIT 41.1 % (42.0-54.0); HEMOGLOBIN 13.4 g/dL (13.5-17.5); IMMATURE GRANULOCYTES 1.2 % (0-5); LYMPHOCYTES 14.5 % (15-50); MCH 28.5 pg (26.0-34.0); MCHC 32.6 g/dL (31.0-37.0); MCV 87.4 fL (80.0-100.0); MEAN PLATELET VOLUME 9.6 fL (7.4-10.4); MONOCYTES 9.7 % (2-11); NEUTROPHILS 72.8 % (40-80); PLATELET COUNT 230 10x3/uL (130-400); RDW 14.1 % (11.5-14.5); WBC 12.1 10x3/uL (4.8-10.8)
[2018-03-20 05:45] LABS: ANION GAP 16.6 mmol/L (8-16); CALCIUM 8.3 mg/dL (8.5-10.1); CARBON DIOXIDE 22.9 mmol/L (21.0-32.0); CREATININE - SERUM 5.5 mg/dL (0.6-1.3)
[2018-03-20 06:12] LABS: POTASSIUM - SERUM 6.5 mmol/L (3.5-5.1)
[2018-03-20 07:59] VITALS: BP 168/84
[2018-03-20 11:27] VITALS: BP 184/78
[2018-03-20 13:06] VITALS: BMI 30.8
[2018-03-20 15:22] VITALS: BP 185/83
[2018-03-20 16:41] VITALS: Ht 177.8 cm; Wt 110.0 kg
[2018-03-20 20:00] VITALS: BP 193/90
[2018-03-21] VITALS: BP 178/83
[2018-03-21 04:00] VITALS: BP 200/83
[2018-03-21 05:37] LABS: BASOPHILS 0.4 % (0-2); EOSINOPHILS 1.9 % (0-7); HEMATOCRIT 43.7 % (42.0-54.0); HEMOGLOBIN 14.3 g/dL (13.5-17.5); IMMATURE GRANULOCYTES 1.4 % (0-5); LYMPHOCYTES 9.5 % (15-50); MCH 28.6 pg (26.0-34.0); MCHC 32.7 g/dL (31.0-37.0); MCV 87.4 fL (80.0-100.0); MEAN PLATELET VOLUME 10.2 fL (7.4-10.4); MONOCYTES 9.6 % (2-11); NEUTROPHILS 77.2 % (40-80); PLATELET COUNT 240 10x3/uL (130-400); WBC 13.9 10x3/uL (4.8-10.8)
[2018-03-21 06:00] LABS: ANION GAP 15.6 mmol/L (8-16); CALCIUM 8.1 mg/dL (8.5-10.1); CARBON DIOXIDE 25.5 mmol/L (21.0-32.0); CREATININE - SERUM 5.2 mg/dL (0.6-1.3); POTASSIUM - SERUM 6.1 mmol/L (3.5-5.1)
[2018-03-21 08:30] VITALS: BP 189/79
[2018-03-21 11:04] VITALS: BP 173/64
[2018-03-21 16:52] VITALS: BP 174/66
[2018-03-21 20:05] VITALS: BP 209/85
[2018-03-22] VITALS: BP 193/87
[2018-03-22 04:00] VITALS: BP 197/84
[2018-03-22 08:29] VITALS: BP 157/81
[2018-03-22 09:35] LABS: HEMATOCRIT 43.8 % (42.0-54.0); HEMOGLOBIN 14.6 g/dL (13.5-17.5); MCH 28.9 pg (26.0-34.0); MCHC 33.3 g/dL (31.0-37.0); MCV 86.6 fL (80.0-100.0); MEAN PLATELET VOLUME 10.1 fL (7.4-10.4); RBC 5.06 10x6/uL (4.20-6.10); WBC 12.9 10x3/uL (4.8-10.8)
[2018-03-22 09:40] LABS: CALCIUM 8.4 mg/dL (8.5-10.1); CARBON DIOXIDE 24.9 mmol/L (21.0-32.0); CREATININE - SERUM 5.1 mg/dL (0.6-1.3); POTASSIUM - SERUM 4.9 mmol/L (3.5-5.1)
[2018-03-22 11:45] VITALS: BP 189/78
[2018-03-22 20:00] VITALS: BP 199/89
[2018-03-23] VITALS (20 sets, daily range): BP systolic 154–196; BP diastolic 69–85
[2018-03-23 06:28] LABS: HEMATOCRIT 41.1 % (42.0-54.0); HEMOGLOBIN 13.9 g/dL (13.5-17.5); MCHC 33.8 g/dL (31.0-37.0); MCV 85.6 fL (80.0-100.0); MEAN PLATELET VOLUME 9.8 fL (7.4-10.4); RBC 4.8 10x6/uL (4.20-6.10); RDW 13.9 % (11.5-14.5); WBC 14.6 10x3/uL (4.8-10.8)
[2018-03-23 06:47] LABS: ANION GAP 16.6 mmol/L (8-16); CALCIUM 8.6 mg/dL (8.5-10.1); CARBON DIOXIDE 25.1 mmol/L (21.0-32.0); CREATININE - SERUM 4.3 mg/dL (0.6-1.3); PHOSPHOROUS 4.5 mg/dL (2.5-4.9); POTASSIUM - SERUM 4.7 mmol/L (3.5-5.1)
[2018-03-24] VITALS (24 sets, daily range): BP systolic 135–190; BP diastolic 59–93
[2018-03-24 05:27] LABS: HEMATOCRIT 37.4 % (42.0-54.0); HEMOGLOBIN 12.2 g/dL (13.5-17.5); MCH 28.6 pg (26.0-34.0); MCHC 32.6 g/dL (31.0-37.0); MEAN PLATELET VOLUME 9.9 fL (7.4-10.4); RBC 4.27 10x6/uL (4.20-6.10); RDW 14.4 % (11.5-14.5); WBC 14.3 10x3/uL (4.8-10.8)
[2018-03-24 05:28] LABS: MCV 87.6 fL (80.0-100.0)
[2018-03-24 08:37] LABS: ANION GAP 13.1 mmol/L (8-16); CALCIUM 8.3 mg/dL (8.5-10.1); CARBON DIOXIDE 27.7 mmol/L (21.0-32.0); POTASSIUM - SERUM 4.8 mmol/L (3.5-5.1)
[2018-03-24 08:41] LABS: CREATININE - SERUM 5.8 mg/dL (0.6-1.3)
[2018-03-25] VITALS (17 sets, daily range): BP systolic 124–195; BP diastolic 61–83
[2018-03-25 06:03] LABS: BASOPHILS 0.3 % (0-2); EOSINOPHILS 2.1 % (0-7); HEMATOCRIT 33.2 % (42.0-54.0); HEMOGLOBIN 10.7 g/dL (13.5-17.5); IMMATURE GRANULOCYTES 0.7 % (0-5); LYMPHOCYTES 15.4 % (15-50); MCH 28.1 pg (26.0-34.0); MCHC 32.2 g/dL (31.0-37.0); MCV 87.1 fL (80.0-100.0); MEAN PLATELET VOLUME 9.7 fL (7.4-10.4); MONOCYTES 15.7 % (2-11); NEUTROPHILS 65.8 % (40-80); RBC 3.81 10x6/uL (4.20-6.10); RDW 13.9 % (11.5-14.5)
[2018-03-25 06:11] LABS: PLATELET COUNT 196 10x3/uL (130-400); WBC 9.7 10x3/uL (4.8-10.8)
[2018-03-25 06:44] LABS: ANION GAP 10.8 mmol/L (8-16); CALCIUM 7.8 mg/dL (8.5-10.1); CARBON DIOXIDE 26.1 mmol/L (21.0-32.0); CREATININE - SERUM 5.5 mg/dL (0.6-1.3); PHOSPHOROUS 5.6 mg/dL (2.5-4.9); POTASSIUM - SERUM 3.9 mmol/L (3.5-5.1)
[2018-03-26 04:00] VITALS: BP 188/73
[2018-03-26 06:36] LABS: BASOPHILS 0.1 % (0-2); EOSINOPHILS 1.2 % (0-7); HEMATOCRIT 35.4 % (42.0-54.0); HEMOGLOBIN 11.5 g/dL (13.5-17.5); IMMATURE GRANULOCYTES 1.2 % (0-5); LYMPHOCYTES 10.8 % (15-50); MCH 27.9 pg (26.0-34.0); MCHC 32.5 g/dL (31.0-37.0); MCV 85.9 fL (80.0-100.0); MONOCYTES 12.4 % (2-11); NEUTROPHILS 74.3 % (40-80); PLATELET COUNT 223 10x3/uL (130-400); RBC 4.12 10x6/uL (4.20-6.10); RDW 13.8 % (11.5-14.5); WBC 7.4 10x3/uL (4.8-10.8)
[2018-03-26 06:37] LABS: ANION GAP 15.2 mmol/L (8-16); CALCIUM 7.9 mg/dL (8.5-10.1); CARBON DIOXIDE 25.6 mmol/L (21.0-32.0); CREATININE - SERUM 5.4 mg/dL (0.6-1.3); POTASSIUM - SERUM 3.8 mmol/L (3.5-5.1)
[2018-03-26 07:57] VITALS: BP 168/73
[2018-03-26 11:28] VITALS: BP 172/71
[2018-03-26 12:20] LABS: NEUT - BF 83 %
[2018-03-26 15:17] VITALS: BP 178/66
[2018-03-26] MEDS ORDERED: PROTONIX40 MG PO (17:08)
[2018-03-26] MEDS ORDERED: DULCOLAX5 MG PO (17:09)
[2018-03-26] MEDS ORDERED: TUMS500 MG PO (17:10)
[2018-03-26] MEDS ORDERED: COLACE100 MG PO (17:11)
[2018-03-26] MEDS ORDERED: ELIQUIS2.5 MG PO (17:11)
[2018-03-26] MEDS ORDERED: BUPRENEX IV (17:12)
[2018-03-26] MEDS ORDERED: VELTASSA8.4 GM PO (17:14)
[2018-03-26] MEDS ORDERED: HYDRALAZINE HCL50 MG PO (17:14)
[2018-03-26] MEDS ORDERED: HUMULIN R100 U/ML SC (17:18)
[2018-03-26] MEDS ORDERED: [UNRECOGNIZED DRUG - OTHER] (17:21)
[2018-03-26] MEDS ORDERED: HYDROCODONE-APA1 TAB PO (17:25)
== END 2018-03-26 18:46 | DRG 469 ==
LOC: D.M2 22:09 → D.ICU 23:20 → D.M2 23:20 → D.ICU 03-23 12:20 → D.M2 03-25 17:19
PROVIDERS: Internal Medicine Nephrology; Orthopaedic Surgery
PROC: 5A1D70Z Performance of Urinary Filtration, Intermittent, Less than 6 Hours Per Day (ICD-10-PCS; 2018-03-22)
PROC: 0SRR01A Replacement of Right Hip Joint, Femoral Surface with Metal Synthetic Substitute, Uncemented, Open Approach (ICD-10-PCS; principal; 2018-03-23 08:45)
DX: S72.001A Fracture of unspecified part of neck of right femur, initial encounter for closed fracture (principal); N18.6 End stage renal disease; I12.0 Hypertensive chronic kidney disease with stage 5 chronic kidney disease or end stage renal disease; W17.89XA Other fall from one level to another, initial encounter; E11.22 Type 2 diabetes mellitus with diabetic chronic kidney disease; Z99.2 Dependence on renal dialysis; Z95.0 Presence of cardiac pacemaker; I25.10 Atherosclerotic heart disease of native coronary artery without angina pectoris; Z95.5 Presence of coronary angioplasty implant and graft; E78.5 Hyperlipidemia, unspecified; E87.5 Hyperkalemia; K59.03 Drug induced constipation; T50.995A Adverse effect of other drugs, medicaments and biological substances, initial encounter; Z87.891 Personal history of nicotine dependence

== ENCOUNTER 2018-03-26 16:25 | Inpatient (IN) | payer MEDICARE ==
[~2018-03-26] VITALS: Ht 177.8 cm; Wt 97.5 kg
--- NOTE | ~2018-03-26 | RHP ---
PATIENT: NATHAN ALLAN JR MEDICAL RECORD: [id number] ACCOUNT: [id number] LOCATION:[facility]1116 : 51 ADMISSION DATE: 03/26/18 REHABILITATION HISTORY AND PHYSICAL EXAMINATION POST ADMISSION PHYSICIAN EXAMINATION DATE OF ADMISSION: 03/26/2018 ADMITTING DIAGNOSES: Right hip fracture, status post bipolar endoprosthesis. HISTORY OF PRESENT ILLNESS: The patient was admitted to inpatient rehab for an orthopedic fracture. He had a displaced femoral neck fracture of the right hip, status post bipolar endoprosthesis. He is a 67-year-old gentleman who lives in [place] presented to the hospital after a fall with an acute displaced femoral neck fracture and was transferred here to the acute hospital. He is on Plavix and surgery was delayed secondary to him being on blood thinners. He has got end-stage renal disease, on peritoneal dialysis at home. States he has been on that for about 3 months. He had hyperkalemia at 6.5 on admit. He had a past medical history of TIA, neuropathy, weakness, diabetes, hypertension, MD, pacemaker placement in the past, stents and angioplasty, aortic valve replacement, asthma, pneumonia, renal failure, chronic back pain, arthritis, joint pain, depression, anxiety, underwent surgery on 03/23/2018 and is progressing with physical therapy. He is moderately independent with the use of a cane and independent with ADLs prior to this fall. Currently set up for max assist for his ADLs and moderate assist to total assist for mobility, lives at home with his and would like to return there and get back to his prior level of functioning or better if possible. COMORBIDITIES: Include end-stage renal disease, chronic aortic stenosis, chronic hypertension, diabetes, acute peritonitis, coronary artery disease, hyperlipidemia, hyperkalemia, and acute constipation. PAST MEDICAL HISTORY: Significant for TIA, neuropathy, weakness, diabetes, hypertension, MD, arrhythmias, asthma, pneumonia, chronic back pain, arthritis, joint replacement, depression, and anxiety. PAST SURGICAL HISTORY: Includes gallbladder surgery. He has had an ACF with titanium plate placement, lumbar fusion, shoulder surgery, total knee, ganglion cyst removal, gastric bypass, fistula, pacemaker placement, and angioplasty with stents. ALLERGIES: IODINATED CONTRAST ORAL OR IV AND BIAXIN. CURRENT MEDICATIONS: He is on heparin 2000 units q. 6 hours, he is on Veltassa to decrease his potassium, Protonix 40 mg b.i.d., furosemide 80 mg daily. He is on Prozac 20 mg daily. He is on peritoneal dialysis. Desyrel 100 mg q.h.s., Betapace 60 mg b.i.d., intermediate-resistance sliding scale with Humulin regular. He is on Levemir 22 units b.i.d., Trenary 1 tab q. 6 hours p.r.n., Apresoline 75 mg t.i.d. - he also takes it 100 mg as needed per hypertensive protocol, Colace 200 mg b.i.d., clonidine 0.1 mg daily as needed, Buprenex 0.3 mg q. 4 hours p.r.n. He is on Dulcolax 10 mg daily p.r.n. and Eliquis 2.5 mg b.i.d. HABITS: No current alcohol or tobacco use. HISTORY AND PHYSICAL [id number] NATHAN ALLAN JR FAMILY HISTORY: Noncontributory. SOCIAL HISTORY: The patient hopes to return back home and get back to his prior level of functioning and live with his . REVIEW OF SYSTEMS: GENERAL: Denies weakness and fatigue. HEENT: Denies cold, cough, or congestion. CARDIOVASCULAR: He denies chest pain. PHYSICAL EXAMINATION: VITAL SIGNS: Stable, afebrile. GENERAL: A well-developed gentleman in no acute distress, alert upon exam. HEENT: Normocephalic and atraumatic. Mucosa moist. NECK: Supple. No lymphadenopathy. LUNGS: Clear at this time. HEART: Regular rate and rhythm. ABDOMEN: Benign. EXTREMITIES: No clubbing, cyanosis or edema. He has a pulsatile swelling and appears normal. NEUROLOGIC: He seems intact. ASSESSMENT: This is a 67-year-old gentleman admitted to the rehab with the working diagnosis of status post open reduction and internal fixation of a right hip fracture. The patient has potential to make improvement. We will institute following multidisciplinary therapies including but not limited to physical, occupational, respiratory, speech, nutritional services, prosthetics and orthotics. Given his complex medical condition and risks for more complications, rehabilitation services cannot be provided at a low level of care such as detention facility. PLAN: 1. Admit to [facility] for intensive inpatient therapy to include the following disciplines: A. Physical therapy. Gait, all transfer skills, and bed mobility to a modified independent level. B. Occupational therapy to improve activities of daily living to a modified independent level. C. Case management to assist with discharge planning and placement options. D. Nutrition to assist with nutritional needs. E. Rehabilitation nursing to assist in monitoring the patient's underlying medical conditions and to assist with any type of bowel or bladder management. 2. The patient's current medication and medical care will be continued. 3. The patient will be placed on standard fall precautions. 4. The patient estimated length of stay approximately 7-10 days. 5. Discuss this patient during care team staff meeting this week. TRANSINT:[id number] Voice Confirmation ID: [id number] DOCUMENT ID: [id number] SAMEER notes whether there has been none or any medical/functional change since admission: - No change since preadmission screen. HISTORY AND PHYSICAL [id number] NATHAN ALLAN JR attests patient continues to be appropriate for IRF: - Continues to be appropriate. NADINE ZARAGOZA MD at 1012 CC: [id number] DICTATION DATE: 03/27/18629 INSTRUMENT TECH: 03/27/18 0856 DIS IN 03/30/18 [facility] [address] [place] [address]
[2018-03-26] MEDS ORDERED: PROTONIX40 MG PO (17:08)
[2018-03-26] MEDS ORDERED: DULCOLAX5 MG PO (17:09)
[2018-03-26] MEDS ORDERED: TUMS500 MG PO (17:10)
[2018-03-26] MEDS ORDERED: ELIQUIS2.5 MG PO (17:11)
[2018-03-26] MEDS ORDERED: COLACE100 MG PO (17:11)
[2018-03-26] MEDS ORDERED: BUPRENEX IV (17:12)
[2018-03-26] MEDS ORDERED: HYDRALAZINE HCL50 MG PO (17:14)
[2018-03-26] MEDS ORDERED: VELTASSA8.4 GM PO (17:14)
[2018-03-26] MEDS ORDERED: HUMULIN R100 U/ML SC (17:18)
[2018-03-26] MEDS ORDERED: [UNRECOGNIZED DRUG - OTHER] (17:21)
[2018-03-26] MEDS ORDERED: HYDROCODONE-APA1 TAB PO (17:25)
[2018-03-26 19:30] VITALS: BP 151/67
[2018-03-26 22:15] VITALS: BP 151/67; BMI 30.9
[2018-03-27 02:08] VITALS: BP 151/67; BMI 30.9
[2018-03-27 06:33] LABS: BASOPHILS 0.2 % (0-2); EOSINOPHILS 2.1 % (0-7); HEMATOCRIT 34.3 % (42.0-54.0); HEMOGLOBIN 11.2 g/dL (13.5-17.5); IMMATURE GRANULOCYTES 1.7 % (0-5); LYMPHOCYTES 14.3 % (15-50); MCH 27.9 pg (26.0-34.0); MCHC 32.7 g/dL (31.0-37.0); MCV 85.3 fL (80.0-100.0); MONOCYTES 12.3 % (2-11); NEUTROPHILS 69.4 % (40-80); PLATELET COUNT 252 10x3/uL (130-400); RBC 4.02 10x6/uL (4.20-6.10); RDW 13.6 % (11.5-14.5)
[2018-03-27 06:50] LABS: ANION GAP 13.6 mmol/L (8-16); CALCIUM 7.8 mg/dL (8.5-10.1); CARBON DIOXIDE 27.2 mmol/L (21.0-32.0); CREATININE - SERUM 4.9 mg/dL (0.6-1.3); POTASSIUM - SERUM 3.8 mmol/L (3.5-5.1)
[2018-03-27 08:07] VITALS: BP 183/63
[2018-03-27 12:59] VITALS: Ht 177.8 cm; Wt 97.5 kg
[2018-03-27 19:00] VITALS: BP 130/73
[2018-03-28 07:30] LABS: BASOPHILS 0.4 % (0-2); EOSINOPHILS 0.5 % (0-7); HEMATOCRIT 38.9 % (42.0-54.0); HEMOGLOBIN 12.8 g/dL (13.5-17.5); IMMATURE GRANULOCYTES 5.3 % (0-5); LYMPHOCYTES 12.6 % (15-50); MCH 28.3 pg (26.0-34.0); MCHC 32.9 g/dL (31.0-37.0); MCV 85.9 fL (80.0-100.0); MEAN PLATELET VOLUME 9.8 fL (7.4-10.4); MONOCYTES 12.5 % (2-11); NEUTROPHILS 68.7 % (40-80); PLATELET COUNT 278 10x3/uL (130-400); RBC 4.53 10x6/uL (4.20-6.10); RDW 13.4 % (11.5-14.5); WBC 7.3 10x3/uL (4.8-10.8)
[2018-03-28 08:14] LABS: ANION GAP 18.2 mmol/L (8-16); CALCIUM 7.8 mg/dL (8.5-10.1); CARBON DIOXIDE 25.5 mmol/L (21.0-32.0); CREATININE - SERUM 4.8 mg/dL (0.6-1.3); POTASSIUM - SERUM 3.7 mmol/L (3.5-5.1)
[2018-03-28 08:20] VITALS: BP 164/87
[2018-03-28 19:00] VITALS: BP 154/51
[2018-03-29 07:59] VITALS: BP 182/73
[2018-03-29 19:00] VITALS: BP 184/71
[2018-03-30 03:29] VITALS: BP 185/71
[2018-03-30 06:20] LABS: BASOPHILS 0.2 % (0-2); EOSINOPHILS 0.2 % (0-7); HEMATOCRIT 37.6 % (42.0-54.0); HEMOGLOBIN 12.3 g/dL (13.5-17.5); IMMATURE GRANULOCYTES 3.8 % (0-5); LYMPHOCYTES 9.5 % (15-50); MCH 28.1 pg (26.0-34.0); MCHC 32.7 g/dL (31.0-37.0); MONOCYTES 12.3 % (2-11); PLATELET COUNT 323 10x3/uL (130-400); RBC 4.37 10x6/uL (4.20-6.10)
[2018-03-30 06:35] LABS: ANION GAP 13.1 mmol/L (8-16); CALCIUM 7.6 mg/dL (8.5-10.1); CARBON DIOXIDE 26.6 mmol/L (21.0-32.0); CREATININE - SERUM 4.4 mg/dL (0.6-1.3); POTASSIUM - SERUM 3.7 mmol/L (3.5-5.1)
[2018-03-30 08:36] VITALS: BP 174/75
[2018-03-30] MEDS ORDERED: PERCOCET 10/3251 TA1 PO (10:50)
[2018-03-30 13:53] LABS: EOS BF 2 %; MACROPHAGES BF 8 %; MESOTHELIALS BF 1 %; NEUT - BF 74 %
== END 2018-03-30 14:00 | disposition short-term general hospital (02) | DRG 559 ==
LOC: D.REHAB 16:25
PROVIDERS: Emergency Medicine; Internal Medicine
DX: S72.001D Fracture of unspecified part of neck of right femur, subsequent encounter for closed fracture with routine healing (principal); N18.6 End stage renal disease; K65.9 Peritonitis, unspecified; I12.0 Hypertensive chronic kidney disease with stage 5 chronic kidney disease or end stage renal disease; W19.XXXD Unspecified fall, subsequent encounter; E11.22 Type 2 diabetes mellitus with diabetic chronic kidney disease; I35.0 Nonrheumatic aortic (valve) stenosis; I25.10 Atherosclerotic heart disease of native coronary artery without angina pectoris; E78.5 Hyperlipidemia, unspecified; E87.5 Hyperkalemia; K59.00 Constipation, unspecified

== ENCOUNTER 2018-03-30 15:12 | Inpatient (IN) | payer MEDICARE ==
[~2018-03-30] VITALS: Ht 177.8 cm; Wt 104.5 kg
--- NOTE | ~2018-03-30 | OP ---
PATIENT NAME: NATHAN ALLAN JR MEDICAL RECORD: [id number] :51 LOCATION:D.M2 D.2132 ADMISSION DATE:03/30/18 SURGEON: TOÑO STACY MD DATE OF OPERATION: 04/11/2018 PREOPERATIVE DIAGNOSES: 1. End-stage renal disease. 2. Peritonitis secondary to peritoneal dialysis. 3. Coronary artery disease. 4. Hypertension. 5. Diabetes mellitus. 6. Aortic stenosis. POSTOPERATIVE DIAGNOSES: 1. End-stage renal disease. 2. Peritonitis secondary to peritoneal dialysis. 3. Coronary artery disease. 4. Hypertension. 5. Diabetes mellitus. 6. Aortic stenosis. PROCEDURE: 1. Right upper extremity fistulogram. 2. Fluoroscopic interpretation. 3. Right IJ 19 cm HemoSplit catheter placement. SURGEON: Toño Stacy MD REPORT OF PROCEDURE: The patient's right chest, neck and upper extremity were all prepped and draped in sterile fashion. The patient had an antecubital brachial anastomosis with a good palpable thrill. A micropuncture device was used to access the distal aspect of the patient's right upper arm. The fistula was easily accessed. Once we put the 5-Montserratian sheath in place, then a fistulogram was performed. We continued this all the way up the arm to the central venous system and saw no sign of any stenoses or diminished flow. There was a good brisk flow with no pulsations present. A retrograde view showed the inlet to the fistula was open and patent with good flow. At this point, the sheath was removed and the opening was oversewn with a 2-0 Prolene. We then elected just to place a right IJ HemoSplit catheter for dialysis. Using ultrasound guidance, a needle was used to cannulate the right internal jugular vein. A guidewire was advanced with ease. Fluoro was used to note that the wire was in good position in the venous system. The catheter was tunneled between this wire and a puncture site on the right chest. The multiple dilators were placed over the wire followed by the dilator trocar device. The dilator and wire were removed and the catheter tip was advanced through the trocar. Once the trocar was removed, then the catheter was pulled back into position at the right atrial superior vena caval junction. The catheter aspirated nonpulsatile dark blood and flushed easily with heparinized saline. This was sutured into place with 2-0 Prolenes and the skin incisions were closed with subcutaneous 5-0 Monocryl. COMPLICATIONS: None. CONDITION: Stable. OPERATIVE REPORT [id number] NATHAN ALLAN JR ANESTHESIA: General endotracheal. BLOOD LOSS: Minimal. TRANSINT:[id number] Voice Confirmation ID: [id number] DOCUMENT ID: [id number] TOÑO STACY MD at 1309 CC: SINGH ZUÑIGA MD [id number] DICTATION DATE: 04/11/18903 RADIOISOTOPE PRODUCTION OPERATOR: 04/11/18 1041 DIS IN 04/12/18 [facility] [address] [place] [address]
[~2018-03-30 15:12] MED LIST changes: +COLACE100 MG PO; +DULCOLAX5 MG PO; +HUMULIN R100 U/ML SC; +PERCOCET 10/3251 TA1 PO; +PROTONIX40 MG PO; +TUMS500 MG PO; +VELTASSA8.4 GM PO; +[UNRECOGNIZED DRUG - OTHER]
[2018-03-30 15:20] VITALS: BP 174/75; BMI 30.9
[2018-03-30 16:13] VITALS: BP 174/69
[2018-03-30 21:10] VITALS: BP 180/70
[2018-03-31 01:12] VITALS: BP 188/73
[2018-03-31 05:40] VITALS: BP 132/74
[2018-03-31 06:48] LABS: BASOPHILS 0.4 % (0-2); EOSINOPHILS 0.9 % (0-7); HEMATOCRIT 37.4 % (42.0-54.0); HEMOGLOBIN 12.1 g/dL (13.5-17.5); LYMPHOCYTES 9.5 % (15-50); MCH 27.8 pg (26.0-34.0); MCHC 32.4 g/dL (31.0-37.0); MEAN PLATELET VOLUME 9.7 fL (7.4-10.4); MONOCYTES 13.2 % (2-11); PLATELET COUNT 314 10x3/uL (130-400); RBC 4.35 10x6/uL (4.20-6.10); WBC 11.1 10x3/uL (4.8-10.8)
[2018-03-31 07:04] LABS: ANION GAP 12.7 mmol/L (8-16); CALCIUM 7.8 mg/dL (8.5-10.1); CARBON DIOXIDE 27.6 mmol/L (21.0-32.0); CREATININE - SERUM 4.4 mg/dL (0.6-1.3); POTASSIUM - SERUM 3.3 mmol/L (3.5-5.1); VANCOMYCIN - RANDOM 48.4 ug/mL (10.0-20.0)
[2018-03-31 07:39] VITALS: BP 170/70
[2018-03-31 10:11] VITALS: BMI 30.8
[2018-03-31 11:14] VITALS: BP 152/73
[2018-03-31 14:41] VITALS: BP 183/73
[2018-03-31 20:00] VITALS: BP 167/65
[2018-04-01] VITALS: BP 178/64
[2018-04-01 04:00] VITALS: BP 175/64
[2018-04-01 07:20] LABS: BASOPHILS 0.4 % (0-2); EOSINOPHILS 1.5 % (0-7); HEMATOCRIT 36.9 % (42.0-54.0); HEMOGLOBIN 12.1 g/dL (13.5-17.5); IMMATURE GRANULOCYTES 6.9 % (0-5); LYMPHOCYTES 8.2 % (15-50); MCHC 32.8 g/dL (31.0-37.0); MCV 85.4 fL (80.0-100.0); MEAN PLATELET VOLUME 9.6 fL (7.4-10.4); PLATELET COUNT 356 10x3/uL (130-400); RBC 4.32 10x6/uL (4.20-6.10); RDW 13.1 % (11.5-14.5)
[2018-04-01 07:21] LABS: WBC 14.4 10x3/uL (4.8-10.8)
[2018-04-01 07:53] LABS: ALBUMIN 1.1 g/dL (3.4-5.0); ANION GAP 13.6 mmol/L (8-16); BILIRUBIN - TOTAL 0.16 mg/dL (0.2-1.3); CALCIUM 7.2 mg/dL (8.5-10.1); CARBON DIOXIDE 28.9 mmol/L (21.0-32.0); CREATININE - SERUM 4.5 mg/dL (0.6-1.3); POTASSIUM - SERUM 3.5 mmol/L (3.5-5.1); PROTEIN - SERUM 4.5 g/dL (6.4-8.2)
[2018-04-01 08:25] VITALS: BP 132/71
[2018-04-01 12:21] VITALS: BP 142/68
[2018-04-01 15:29] VITALS: BP 169/60
[2018-04-01 20:00] VITALS: BP 154/61
[2018-04-02] VITALS: BP 180/64
[2018-04-02 04:00] VITALS: BP 177/72
[2018-04-02 05:52] LABS: BASOPHILS 0.6 % (0-2); EOSINOPHILS 0.9 % (0-7); HEMOGLOBIN 11.7 g/dL (13.5-17.5); LYMPHOCYTES 10.8 % (15-50); MCH 27.8 pg (26.0-34.0); MCHC 32.5 g/dL (31.0-37.0); MCV 85.5 fL (80.0-100.0); MEAN PLATELET VOLUME 9.8 fL (7.4-10.4); MONOCYTES 11.1 % (2-11); NEUTROPHILS 68.6 % (40-80); PLATELET COUNT 371 10x3/uL (130-400); RBC 4.21 10x6/uL (4.20-6.10); RDW 13.2 % (11.5-14.5)
[2018-04-02 06:34] LABS: ALBUMIN 1.1 g/dL (3.4-5.0); ANION GAP 13.9 mmol/L (8-16); BILIRUBIN - TOTAL 0.19 mg/dL (0.2-1.3); CALCIUM 7.1 mg/dL (8.5-10.1); CARBON DIOXIDE 27.7 mmol/L (21.0-32.0); CREATININE - SERUM 4.7 mg/dL (0.6-1.3); POTASSIUM - SERUM 3.6 mmol/L (3.5-5.1); PROTEIN - SERUM 4.4 g/dL (6.4-8.2); VANCOMYCIN - RANDOM 31.2 ug/mL (10.0-20.0)
[2018-04-02 08:02] VITALS: BP 132/69
[2018-04-02 12:56] VITALS: BP 128/64
[2018-04-02 15:08] VITALS: BP 136/69
[2018-04-02 20:00] VITALS: BP 177/61
[2018-04-03] VITALS: BP 167/62
[2018-04-03 04:00] VITALS: BP 163/66
[2018-04-03 07:35] LABS: BILIRUBIN - TOTAL 0.4 mg/dL (0.2-1.3); CARBON DIOXIDE 30.7 mmol/L (21.0-32.0); CREATININE - SERUM 4.9 mg/dL (0.6-1.3); PROTEIN - SERUM 4.5 g/dL (6.4-8.2)
[2018-04-03 07:36] LABS: ANION GAP 9.1 mmol/L (8-16); POTASSIUM - SERUM 3.8 mmol/L (3.5-5.1)
[2018-04-03 07:49] VITALS: BP 170/61
[2018-04-03 08:46] LABS: BASOPHILS 0.3 % (0-2); EOSINOPHILS 0.7 % (0-7); HEMATOCRIT 38.5 % (42.0-54.0); HEMOGLOBIN 12.5 g/dL (13.5-17.5); IMMATURE GRANULOCYTES 5.9 % (0-5); LYMPHOCYTES 7.6 % (15-50); MCH 27.5 pg (26.0-34.0); MCHC 32.5 g/dL (31.0-37.0); MCV 84.6 fL (80.0-100.0); MEAN PLATELET VOLUME 10.3 fL (7.4-10.4); MONOCYTES 9.5 % (2-11); PLATELET COUNT 351 10x3/uL (130-400); RBC 4.55 10x6/uL (4.20-6.10); RDW 13.2 % (11.5-14.5); WBC 16.4 10x3/uL (4.8-10.8)
[2018-04-03 11:22] VITALS: BP 148/64
[2018-04-03 15:22] VITALS: BP 157/68
[2018-04-03 16:12] LABS: APPEARANCE CLEAR (CLEAR); BILIRUBIN NEGATIVE (NEGATIVE); COLOR YELLOW (YELLOW); GLUCOSE NEGATIVE (NEGATIVE); KETONE NEGATIVE (NEGATIVE); NITRITE NEGATIVE (NEGATIVE); PROTEIN 1+ mg/dL (NEGATIVE); SPECIFIC GRAVITY 1.015 (1.005-1.020); UROBILINOGEN NORMAL (NORMAL)
[2018-04-03 20:00] VITALS: BP 148/50
[2018-04-03 22:39] LABS: MACROPHAGES BF 7 %; MESOTHELIALS BF 13 %; NEUT - BF 74 %
[2018-04-04 04:00] VITALS: BP 137/54
[2018-04-04 07:07] LABS: HEMATOCRIT 35.6 % (42.0-54.0); HEMOGLOBIN 11.5 g/dL (13.5-17.5); MCH 27.9 pg (26.0-34.0); MCHC 32.3 g/dL (31.0-37.0); MCV 86.4 fL (80.0-100.0); MEAN PLATELET VOLUME 9.8 fL (7.4-10.4); PLATELET COUNT 302 10x3/uL (130-400); RBC 4.12 10x6/uL (4.20-6.10); RDW 13.2 % (11.5-14.5); WBC 22.1 10x3/uL (4.8-10.8)
[2018-04-04 07:23] LABS: ALBUMIN 1.1 g/dL (3.4-5.0); ANION GAP 14.4 mmol/L (8-16); BILIRUBIN - TOTAL 0.2 mg/dL (0.2-1.3); CARBON DIOXIDE 27.3 mmol/L (21.0-32.0); CREATININE - SERUM 4.9 mg/dL (0.6-1.3); POTASSIUM - SERUM 3.7 mmol/L (3.5-5.1); PROTEIN - SERUM 4.1 g/dL (6.4-8.2)
[2018-04-04 07:28] LABS: CALCIUM 6.9 mg/dL (8.5-10.1)
[2018-04-04 07:53] LABS: BASOPHILS 1 % (0-2); EOSINOPHILS 1 % (0-7); LYMPHOCYTES 11 % (15-50); MONOCYTES 10 % (2-11); NEUTROPHILS 67 % (40-80); PLATELET ESTIMATE NORMAL
[2018-04-04 07:59] VITALS: BP 172/59
[2018-04-04 11:35] VITALS: BP 168/65
[2018-04-04 15:33] VITALS: BP 162/66
[2018-04-04 20:00] VITALS: BP 160/64
[2018-04-05 04:00] VITALS: BP 143/52
[2018-04-05 05:21] LABS: BASOPHILS 0.3 % (0-2); EOSINOPHILS 0.6 % (0-7); HEMATOCRIT 32.2 % (42.0-54.0); HEMOGLOBIN 10.5 g/dL (13.5-17.5); LYMPHOCYTES 8.8 % (15-50); MCH 27.9 pg (26.0-34.0); MCHC 32.6 g/dL (31.0-37.0); MCV 85.4 fL (80.0-100.0); MEAN PLATELET VOLUME 9.4 fL (7.4-10.4); MONOCYTES 7.4 % (2-11); NEUTROPHILS 75.9 % (40-80); PLATELET COUNT 267 10x3/uL (130-400); RBC 3.77 10x6/uL (4.20-6.10); RDW 13.3 % (11.5-14.5); WBC 17.2 10x3/uL (4.8-10.8)
[2018-04-05 05:54] LABS: ANION GAP 11.5 mmol/L (8-16); BILIRUBIN - TOTAL 0.22 mg/dL (0.2-1.3); CARBON DIOXIDE 28.7 mmol/L (21.0-32.0); CREATININE - SERUM 5.4 mg/dL (0.6-1.3); POTASSIUM - SERUM 3.2 mmol/L (3.5-5.1); PROTEIN - SERUM 4.8 g/dL (6.4-8.2)
[2018-04-05 06:01] LABS: ALBUMIN 1.5 g/dL (3.4-5.0); CALCIUM 6.9 mg/dL (8.5-10.1)
[2018-04-05 08:35] VITALS: BP 158/54
[2018-04-05 11:42] VITALS: BP 154/58
[2018-04-05 15:40] VITALS: BP 141/44
[2018-04-05 20:00] VITALS: BP 160/52
[2018-04-06 01:51] VITALS: BP 106/60
[2018-04-06 05:54] VITALS: BP 176/60
[2018-04-06 06:07] LABS: ANION GAP 11.2 mmol/L (8-16); CARBON DIOXIDE 29.9 mmol/L (21.0-32.0); POTASSIUM - SERUM 3.1 mmol/L (3.5-5.1)
[2018-04-06 06:09] LABS: CALCIUM 6.6 mg/dL (8.5-10.1)
[2018-04-06 06:24] LABS: BASOPHILS 0.4 % (0-2); EOSINOPHILS 0.8 % (0-7); HEMATOCRIT 32.9 % (42.0-54.0); HEMOGLOBIN 10.7 g/dL (13.5-17.5); IMMATURE GRANULOCYTES 7.2 % (0-5); LYMPHOCYTES 9.3 % (15-50); MCH 27.8 pg (26.0-34.0); MCHC 32.5 g/dL (31.0-37.0); MCV 85.5 fL (80.0-100.0); MEAN PLATELET VOLUME 9.6 fL (7.4-10.4); MONOCYTES 8.3 % (2-11); PLATELET COUNT 296 10x3/uL (130-400); RBC 3.85 10x6/uL (4.20-6.10); RDW 13.3 % (11.5-14.5)
[2018-04-06 08:18] VITALS: BP 124/66
[2018-04-06 11:09] VITALS: BP 123/76
[2018-04-06 16:03] VITALS: BP 120/69
[2018-04-06 20:22] VITALS: BP 156/37
[2018-04-07 01:50] VITALS: BP 157/57
[2018-04-07 05:25] VITALS: BP 170/62
[2018-04-07 07:34] LABS: BASOPHILS 0.1 % (0-2); EOSINOPHILS 0 % (0-7); HEMATOCRIT 31.3 % (42.0-54.0); HEMOGLOBIN 10.1 g/dL (13.5-17.5); IMMATURE GRANULOCYTES 4.1 % (0-5); LYMPHOCYTES 3.7 % (15-50); MCH 27.6 pg (26.0-34.0); MCHC 32.3 g/dL (31.0-37.0); MCV 85.5 fL (80.0-100.0); MEAN PLATELET VOLUME 9.4 fL (7.4-10.4); MONOCYTES 1.6 % (2-11); NEUTROPHILS 90.5 % (40-80); PLATELET COUNT 251 10x3/uL (130-400); RBC 3.66 10x6/uL (4.20-6.10); RDW 13.4 % (11.5-14.5); WBC 16.9 10x3/uL (4.8-10.8)
[2018-04-07 07:48] LABS: ANION GAP 10.9 mmol/L (8-16); CARBON DIOXIDE 30.2 mmol/L (21.0-32.0); CREATININE - SERUM 4.7 mg/dL (0.6-1.3); POTASSIUM - SERUM 4.1 mmol/L (3.5-5.1)
[2018-04-07 08:35] VITALS: BP 178/61
[2018-04-07 12:00] VITALS: BP 178/68
[2018-04-07 17:02] VITALS: BP 177/62
[2018-04-07 20:50] VITALS: BP 174/69
[2018-04-08 01:31] VITALS: BP 170/60
[2018-04-08 05:41] VITALS: BP 170/62
[2018-04-08 09:09] VITALS: BP 152/58
[2018-04-08 11:25] LABS: BASOPHILS 0.2 % (0-2); EOSINOPHILS 0.2 % (0-7); HEMATOCRIT 34.3 % (42.0-54.0); HEMOGLOBIN 11.1 g/dL (13.5-17.5); IMMATURE GRANULOCYTES 3.6 % (0-5); LYMPHOCYTES 8.3 % (15-50); MCH 27.8 pg (26.0-34.0); MCHC 32.4 g/dL (31.0-37.0); MEAN PLATELET VOLUME 9.5 fL (7.4-10.4); MONOCYTES 8.7 % (2-11); PLATELET COUNT 358 10x3/uL (130-400); RBC 3.99 10x6/uL (4.20-6.10); RDW 13.6 % (11.5-14.5)
[2018-04-08 11:38] LABS: CALCIUM 7.4 mg/dL (8.5-10.1); CARBON DIOXIDE 32.3 mmol/L (21.0-32.0); CREATININE - SERUM 4.7 mg/dL (0.6-1.3); PHOSPHOROUS 3.9 mg/dL (2.5-4.9)
[2018-04-08 11:46] LABS: POTASSIUM - SERUM 3.3 mmol/L (3.5-5.1)
[2018-04-08 12:00] VITALS: BP 116/71
[2018-04-08 17:23] VITALS: BP 174/65
[2018-04-08 22:05] VITALS: BP 160/67
[2018-04-09 05:22] VITALS: BP 179/66
[2018-04-09 07:19] LABS: BASOPHILS 0.1 % (0-2); EOSINOPHILS 0.4 % (0-7); HEMATOCRIT 32.4 % (42.0-54.0); HEMOGLOBIN 10.4 g/dL (13.5-17.5); IMMATURE GRANULOCYTES 2.9 % (0-5); LYMPHOCYTES 7.3 % (15-50); MCH 27.8 pg (26.0-34.0); MCHC 32.1 g/dL (31.0-37.0); MCV 86.6 fL (80.0-100.0); MEAN PLATELET VOLUME 9.9 fL (7.4-10.4); MONOCYTES 10.3 % (2-11); PLATELET COUNT 311 10x3/uL (130-400); RBC 3.74 10x6/uL (4.20-6.10); RDW 13.7 % (11.5-14.5); WBC 16.8 10x3/uL (4.8-10.8)
[2018-04-09 07:29] LABS: ANION GAP 8.9 mmol/L (8-16); CALCIUM 7.6 mg/dL (8.5-10.1); CARBON DIOXIDE 31.8 mmol/L (21.0-32.0); CREATININE - SERUM 4.4 mg/dL (0.6-1.3); POTASSIUM - SERUM 3.7 mmol/L (3.5-5.1); VANCOMYCIN - RANDOM 19.8 ug/mL (10.0-20.0)
[2018-04-09 08:20] VITALS: BP 183/65
[2018-04-09 11:24] VITALS: BP 177/72
[2018-04-09 16:10] VITALS: BP 190/67
[2018-04-09 16:21] VITALS: Ht 177.8 cm; Wt 104.5 kg
[2018-04-09 20:24] VITALS: BP 153/54
[2018-04-10 01:00] VITALS: BP 174/60
[2018-04-10 06:14] VITALS: BP 140/54
[2018-04-10 07:14] LABS: ANION GAP 12.6 mmol/L (8-16); CALCIUM 7.2 mg/dL (8.5-10.1); CARBON DIOXIDE 28.7 mmol/L (21.0-32.0); CREATININE - SERUM 4.4 mg/dL (0.6-1.3); INR 1.32 (0.85-1.17); PROTIME 15.9 SECONDS (11.6-15.0); VANCOMYCIN - RANDOM 20.7 ug/mL (10.0-20.0)
[2018-04-10 07:20] LABS: POTASSIUM - SERUM 4.3 mmol/L (3.5-5.1)
[2018-04-10 07:38] LABS: BASOPHILS 0.2 % (0-2); EOSINOPHILS 0.6 % (0-7); HEMATOCRIT 28.8 % (42.0-54.0); HEMOGLOBIN 9.1 g/dL (13.5-17.5); LYMPHOCYTES 11.3 % (15-50); MCH 27.7 pg (26.0-34.0); MCHC 31.6 g/dL (31.0-37.0); MCV 87.8 fL (80.0-100.0); MEAN PLATELET VOLUME 9.9 fL (7.4-10.4); MONOCYTES 12.3 % (2-11); NEUTROPHILS 72.6 % (40-80); PLATELET COUNT 270 10x3/uL (130-400); RBC 3.28 10x6/uL (4.20-6.10); RDW 13.9 % (11.5-14.5)
[2018-04-10 07:43] LABS: WBC 11.1 10x3/uL (4.8-10.8)
[2018-04-10 08:35] VITALS: BP 141/57
[2018-04-10 12:02] VITALS: BP 196/63
[2018-04-10 16:12] VITALS: BP 113/65
[2018-04-10 20:00] VITALS: BP 147/57
[2018-04-11] VITALS: BP 130/58
[2018-04-11 06:22] LABS: BASOPHILS 0.1 % (0-2); EOSINOPHILS 0.8 % (0-7); HEMATOCRIT 28.8 % (42.0-54.0); HEMOGLOBIN 9.1 g/dL (13.5-17.5); IMMATURE GRANULOCYTES 4.1 % (0-5); LYMPHOCYTES 12.4 % (15-50); MCH 28.2 pg (26.0-34.0); MCHC 31.6 g/dL (31.0-37.0); MCV 89.2 fL (80.0-100.0); MEAN PLATELET VOLUME 9.7 fL (7.4-10.4); MONOCYTES 8.2 % (2-11); NEUTROPHILS 74.4 % (40-80); RBC 3.23 10x6/uL (4.20-6.10); RDW 14.1 % (11.5-14.5); WBC 13.5 10x3/uL (4.8-10.8)
[2018-04-11 06:35] LABS: PLATELET COUNT 327 10x3/uL (130-400)
[2018-04-11 06:54] LABS: CALCIUM 7.4 mg/dL (8.5-10.1); CARBON DIOXIDE 27.5 mmol/L (21.0-32.0); CREATININE - SERUM 4.9 mg/dL (0.6-1.3); PHOSPHOROUS 4.3 mg/dL (2.5-4.9)
[2018-04-11 06:55] LABS: POTASSIUM - SERUM 3.5 mmol/L (3.5-5.1)
[2018-04-11 22:01] VITALS: BP 149/55
[2018-04-12 06:52] LABS: BASOPHILS 0.2 % (0-2); EOSINOPHILS 0.4 % (0-7); HEMATOCRIT 30.1 % (42.0-54.0); HEMOGLOBIN 9.1 g/dL (13.5-17.5); IMMATURE GRANULOCYTES 2.4 % (0-5); LYMPHOCYTES 9.9 % (15-50); MCH 27.4 pg (26.0-34.0); MCHC 30.2 g/dL (31.0-37.0); MCV 90.7 fL (80.0-100.0); MEAN PLATELET VOLUME 9.4 fL (7.4-10.4); NEUTROPHILS 78.1 % (40-80); PLATELET COUNT 327 10x3/uL (130-400); RBC 3.32 10x6/uL (4.20-6.10); RDW 14.2 % (11.5-14.5); WBC 16.2 10x3/uL (4.8-10.8)
[2018-04-12 06:55] LABS: ANION GAP 12.5 mmol/L (8-16); CALCIUM 7.6 mg/dL (8.5-10.1); CREATININE - SERUM 3.8 mg/dL (0.6-1.3); PHOSPHOROUS 3.7 mg/dL (2.5-4.9); VANCOMYCIN - RANDOM 15.6 ug/mL (10.0-20.0)
[2018-04-12 07:00] VITALS: BP 168/57
[2018-04-12 07:01] LABS: POTASSIUM - SERUM 4.5 mmol/L (3.5-5.1)
[2018-04-12 13:03] VITALS: BP 173/59
[2018-04-12] MEDS ORDERED: OMNICEF300 MG PO (15:37)
== END 2018-04-12 16:39 | disposition home health service (06) | DRG 919 ==
LOC: D.M2 15:12
PROVIDERS: Emergency Medicine; Internal Medicine Nephrology; Surgery
PROC: 5A1D70Z Performance of Urinary Filtration, Intermittent, Less than 6 Hours Per Day (ICD-10-PCS; 2018-04-10)
PROC: B51W1ZZ Fluoroscopy of Dialysis Shunt/Fistula using Low Osmolar Contrast (ICD-10-PCS; principal; 2018-04-11 08:00)
PROC: 05HM33Z Insertion of Infusion Device into Right Internal Jugular Vein, Percutaneous Approach (ICD-10-PCS; 2018-04-11 08:00)
DX: T85.71XA Infection and inflammatory reaction due to peritoneal dialysis catheter, initial encounter (principal); K65.0 Generalized (acute) peritonitis; N18.6 End stage renal disease; I12.0 Hypertensive chronic kidney disease with stage 5 chronic kidney disease or end stage renal disease; K56.7 Ileus, unspecified; Y83.8 Other surgical procedures as the cause of abnormal reaction of the patient, or of later complication, without mention of misadventure at the time of the procedure; E11.22 Type 2 diabetes mellitus with diabetic chronic kidney disease; E11.65 Type 2 diabetes mellitus with hyperglycemia; Z99.2 Dependence on renal dialysis; S72.001D Fracture of unspecified part of neck of right femur, subsequent encounter for closed fracture with routine healing; W19.XXXD Unspecified fall, subsequent encounter; E11.40 Type 2 diabetes mellitus with diabetic neuropathy, unspecified; I70.219 Atherosclerosis of native arteries of extremities with intermittent claudication, unspecified extremity; F41.8 Other specified anxiety disorders; I25.10 Atherosclerotic heart disease of native coronary artery without angina pectoris; K59.00 Constipation, unspecified; D50.0 Iron deficiency anemia secondary to blood loss (chronic); D63.1 Anemia in chronic kidney disease; E78.5 Hyperlipidemia, unspecified; B96.1 Klebsiella pneumoniae [K. pneumoniae] as the cause of diseases classified elsewhere; E88.09 Other disorders of plasma-protein metabolism, not elsewhere classified; Z95.0 Presence of cardiac pacemaker; Z86.73 Personal history of transient ischemic attack (TIA), and cerebral infarction without residual deficits

== ENCOUNTER 2018-04-26 02:59 | Inpatient (IN) | payer MEDICARE ==
[2018-04-26] VITALS (9 sets, daily range): BP systolic 113–181; BP diastolic 69–94; BMI 31.2
[~2018-04-26] VITALS: Ht 177.8 cm; Wt 98.5 kg
[~2018-04-26 02:59] MED LIST changes: +OMNICEF300 MG PO
[2018-04-27 00:36] VITALS: BP 171/49
[2018-04-27 05:31] VITALS: BP 161/73
[2018-04-27 07:00] VITALS: BP 150/63
[2018-04-27 12:35] VITALS: Ht 177.8 cm; Wt 98.5 kg
[2018-04-27] MEDS ORDERED: OMNICEF300 MG PO (16:05)
[2018-04-27] MEDS ORDERED: NORCO 7.5/325 T1 TA1 PO (16:18)
== END 2018-04-27 17:50 | DRG 193 ==
LOC: D.ICU 02:59 → D.M2 05:14 → D.ICU 05:14 → D.M2 14:51
DX: J18.9 Pneumonia, unspecified organism (principal); N18.6 End stage renal disease; I12.0 Hypertensive chronic kidney disease with stage 5 chronic kidney disease or end stage renal disease; I82.622 Acute embolism and thrombosis of deep veins of left upper extremity; E11.649 Type 2 diabetes mellitus with hypoglycemia without coma; E11.22 Type 2 diabetes mellitus with diabetic chronic kidney disease; S83.421A Sprain of lateral collateral ligament of right knee, initial encounter; W19.XXXA Unspecified fall, initial encounter

== ENCOUNTER 2018-04-27 17:58 | Inpatient (IN) | payer MEDICARE ==
[~2018-04-27] VITALS: Ht 177.8 cm; Wt 97.5 kg
--- NOTE | ~2018-04-27 | RHP ---
PATIENT: NATHAN ALLAN JR MEDICAL RECORD: [id number] ACCOUNT: [id number] LOCATION:[facility] D.1109 : 51 ADMISSION DATE: 04/27/18 REHABILITATION HISTORY AND PHYSICAL EXAMINATION POST ADMISSION PHYSICIAN EXAMINATION POST-ADMISSION PHYSICAL EXAMINATION AND HISTORY AND PHYSICAL DATE OF ADMISSION: 04/27/2018 ADMITTING DIAGNOSIS: Debility secondary to pneumonia. HISTORY OF PRESENT ILLNESS: The patient is a 67-year-old gentleman, admitted to the inpatient rehab for debility. He has end-stage renal disease, was recently changed to hemodialysis from peritoneal dialysis secondary to peritonitis. He was recently in our acute rehab department, had to return to acute and wanted to discharge home from acute hospital after his extended hospitalization for a trial. He was discharged on 04/12. He sustained 2 falls. His falls are reason for his hospitalization. Secondary to increased pain in his right knee, he was found to have a lateral collateral ligament tear. He was also found to have hypoglycemia, acute mental status changes, and acute pneumonia. He has been found to have a DVT in his left upper extremity. Ordered to increase his anticoagulants, to start Lovenox injections. He is currently on hemodialysis, while recently he had peritonitis from his peritoneal dialysis. He has a past medical history of TIA, neuropathy, weakness, diabetes, hypertension, AL, pacemaker placement, stents and angioplasty, aortic valve replacement, asthma, pneumonia, renal failure. His peritoneal dialysis was changed over to hemodialysis. He has had a recent right hip fracture secondary to a fall, was surgically repaired on 03/23, chronic back pain, joint replacement, depression and anxiety. He was living in his home, was moderately independent with his cane and independent with his ADLs prior to his recent hospitalization. He is currently set up for mod assist for his ADLs and mod assist to total assist for mobility. He would like to return home and get back to his prior level of function if there is any possibility of this. Comorbidities include pneumonia, LCL tear, pain, DVT in left arm, chronic diabetes, hypertension, atherosclerosis, chronic anemia, end-stage renal disease, peritonitis, coronary artery disease, hyperlipidemia, chronic right hip pain secondary to fracture. PAST MEDICAL HISTORY: Significant for TIA, neuropathy, weakness, diabetes, hypertension, AL, coronary artery disease, asthma, pneumonia, renal failure, chronic back pain, arthritis, depression, and anxiety. PAST SURGICAL HISTORY: Includes gallbladder surgery. He has had ACF with titanium plate, lumbar fusion, right shoulder surgery, left shoulder surgery, total right knee, right wrist surgery, gastric bypass, fistula creation, had stents and angioplasty, aortic valve replacement. ALLERGIES: IODINATED CONTRAST, BIAXIN, AND ADHESIVE TAPE. CURRENT MEDICATIONS: Include Veltassa 8.4 mg daily, Protonix 40 mg b.i.d., Prozac 20 mg daily, Omnicef 300 mg daily, trazodone 100 mg at bedtime, sotalol 60 mg b.i.d. He is on a low-resistant sliding scale, [employer] 7.5/325 one to two tabs every 4 hours p.r.n. pain. He is on hydralazine 100 mg t.i.d., Colace 200 mg b.i.d., Catapres 0.1 mg daily. He is on Tums 500 mg every 4 hours p.r.n., Dulcolax 10 mg as needed, and Eliquis 5 mg b.i.d. HISTORY AND PHYSICAL [id number] NATHAN ALLAN JR HABITS: No current alcohol or tobacco use. FAMILY HISTORY: Noncontributory. SOCIAL HISTORY: The patient hopes to return back home and get back to his prior level of functioning. REVIEW OF SYSTEMS: GENERAL: Does complain of weakness and fatigue. HEENT: Denies cold, cough, or congestion. CARDIOVASCULAR: Denies chest pain. PHYSICAL EXAMINATION: VITAL SIGNS: Stable, afebrile. GENERAL: A somewhat overweight gentleman, in no acute distress upon exam. HEENT: Normocephalic and atraumatic. Mucosa moist. NECK: Supple. No lymphadenopathy. LUNGS: Clear at this time. HEART: Regular rate and rhythm. ABDOMEN: Benign. EXTREMITIES: Does have noted swelling to his left upper extremity and also venous stasis changes to his lower legs. NEUROLOGIC: He has noted proximal muscle weakness. LABORATORY DATA: White count of 7.5, H&H of 9.5 and 31, and platelet count of 346. His sodium is 140, potassium 4.6, BUN and creatinine of 31 and 3.9, blood sugar is noted to be 239. ASSESSMENT: This is a 67-year-old gentleman, admitted to the rehab with a working diagnosis of debility secondary to pneumonia, but other medical problems also. The patient has potential to make improvement. We will institute the following multidisciplinary therapies including, not limited to, physical, occupational, respiratory, speech, nutritional services, prosthetics and orthotics. Given his complex medical condition and risks for more complications, rehabilitation services cannot be provided at a low level of care such as [facility] facility. PLAN: 1. Admit to [facility] for intensive inpatient therapy to include the following disciplines: A. Physical therapy to improve gait, all transfer skills and bed mobility to a modified independent level. B. Occupational therapy to improve activities of daily living to a modified independent level. C. Case management to assist with discharge planning and placement options. D. Nutrition to assist with nutritional needs. E. Rehabilitation nursing to assist in monitoring the patient's underlying medical conditions and to assist with any type of bowel or bladder management. 2. The patient's current medications and medical care will be continued. 3. The patient will be placed on standard fall precautions. 4. The patient's estimated length of stay is approximately 7-10 days. 5. We will discuss this patient during care team staff meeting this week. I am going to go ahead and adjust his pain medications this morning. Appreciate HISTORY AND PHYSICAL [id number] NATHAN ALLAN JR renal seeing this patient. I will follow up on Monday a.m. TRANSINT:[id number] Voice Confirmation ID: [id number] DOCUMENT ID: [id number] SAMEER notes whether there has been none or any medical/functional change since admission: - No Change since the PAS SAMEER attests patient continues to be appropriate for IRF: - Continues to be appropriate for the IRF NADINE ZARAGOZA MD at 1438 CC: [id number] DICTATION DATE: 04/28/18916 DIRECTOR FAMILY: 04/28/18 1135 ADM IN [facility] [address] [place] [address]
[~2018-04-27 17:58] MED LIST changes: +NORCO 7.5/325 T1 TA1 PO
[2018-04-27 18:00] VITALS: BP 166/66
[2018-04-27 18:26] VITALS: BP 141/66; BMI 30.9
[2018-04-28] VITALS: BP 175/72
[2018-04-28 06:41] VITALS: BP 188/75
[2018-04-28 08:54] LABS: BASOPHILS 0.3 % (0-2); EOSINOPHILS 2.4 % (0-7); HEMOGLOBIN 9.5 g/dL (13.5-17.5); IMMATURE GRANULOCYTES 2.5 % (0-5); LYMPHOCYTES 14.4 % (15-50); MCH 27.2 pg (26.0-34.0); MCHC 30.6 g/dL (31.0-37.0); MCV 88.8 fL (80.0-100.0); MEAN PLATELET VOLUME 9.2 fL (7.4-10.4); NEUTROPHILS 67.4 % (40-80); PLATELET COUNT 346 10x3/uL (130-400); RBC 3.49 10x6/uL (4.20-6.10); RDW 14.6 % (11.5-14.5); WBC 7.5 10x3/uL (4.8-10.8)
[2018-04-28 09:03] LABS: ANION GAP 12.9 mmol/L (8-16); CALCIUM 9.2 mg/dL (8.5-10.1); CARBON DIOXIDE 26.7 mmol/L (21.0-32.0); CREATININE - SERUM 3.9 mg/dL (0.6-1.3); POTASSIUM - SERUM 4.6 mmol/L (3.5-5.1)
[2018-04-28 13:47] VITALS: BP 185/75
[2018-04-28 15:20] VITALS: Ht 177.8 cm; Wt 97.5 kg
[2018-04-28 18:16] VITALS: BP 170/64
[2018-04-28 19:40] VITALS: BP 164/61
[2018-04-29 00:08] VITALS: BP 170/73
[2018-04-29 08:16] VITALS: BP 180/78
[2018-04-29 14:23] VITALS: BP 130/60
[2018-04-29 19:33] VITALS: BP 179/63
[2018-04-30] VITALS: BP 186/76
[2018-04-30 06:00] VITALS: BP 192/74
[2018-04-30 07:20] LABS: BASOPHILS 0.4 % (0-2); EOSINOPHILS 3.1 % (0-7); HEMATOCRIT 30.2 % (42.0-54.0); HEMOGLOBIN 9.2 g/dL (13.5-17.5); IMMATURE GRANULOCYTES 3.8 % (0-5); LYMPHOCYTES 16.9 % (15-50); MCH 26.9 pg (26.0-34.0); MCHC 30.5 g/dL (31.0-37.0); MCV 88.3 fL (80.0-100.0); MONOCYTES 10.9 % (2-11); NEUTROPHILS 64.9 % (40-80); PLATELET COUNT 351 10x3/uL (130-400); RBC 3.42 10x6/uL (4.20-6.10); RDW 14.5 % (11.5-14.5); WBC 7.1 10x3/uL (4.8-10.8)
[2018-04-30 07:31] LABS: ANION GAP 14.5 mmol/L (8-16); CARBON DIOXIDE 26.2 mmol/L (21.0-32.0); CREATININE - SERUM 4.3 mg/dL (0.6-1.3); POTASSIUM - SERUM 4.7 mmol/L (3.5-5.1)
[2018-04-30 12:28] VITALS: BP 188/71
[2018-04-30 22:24] VITALS: BP 98/70
[2018-05-01] VITALS: BP 130/72
[2018-05-01 08:00] VITALS: BP 195/85
[2018-05-01 10:21] LABS: HEPATITIS C ANTIBODY <0.1 (0.0-0.9)
[2018-05-01 12:05] VITALS: BP 171/68
[2018-05-01 18:00] VITALS: BP 178/70
[2018-05-02 00:04] VITALS: BP 168/72
[2018-05-02 06:12] VITALS: BP 128/68
[2018-05-02 07:11] LABS: BASOPHILS 0.3 % (0-2); EOSINOPHILS 2.2 % (0-7); HEMATOCRIT 28.3 % (42.0-54.0); HEMOGLOBIN 8.6 g/dL (13.5-17.5); IMMATURE GRANULOCYTES 3.8 % (0-5); LYMPHOCYTES 13.7 % (15-50); MCH 26.8 pg (26.0-34.0); MCHC 30.4 g/dL (31.0-37.0); MCV 88.2 fL (80.0-100.0); MEAN PLATELET VOLUME 9.2 fL (7.4-10.4); MONOCYTES 10.5 % (2-11); NEUTROPHILS 69.5 % (40-80); PLATELET COUNT 367 10x3/uL (130-400); RBC 3.21 10x6/uL (4.20-6.10); RDW 14.4 % (11.5-14.5)
[2018-05-02 07:14] LABS: WBC 9.2 10x3/uL (4.8-10.8)
[2018-05-02 07:34] LABS: ALBUMIN 2.1 g/dL (3.4-5.0); ANION GAP 11.6 mmol/L (8-16); BILIRUBIN - TOTAL 0.2 mg/dL (0.2-1.3); CALCIUM 7.9 mg/dL (8.5-10.1); CREATININE - SERUM 4.5 mg/dL (0.6-1.3); POTASSIUM - SERUM 4.6 mmol/L (3.5-5.1); PROTEIN - SERUM 5.9 g/dL (6.4-8.2); VANCOMYCIN - RANDOM 8.3 ug/mL (10.0-20.0)
[2018-05-02 08:00] VITALS: BP 203/76
[2018-05-02 11:59] VITALS: BP 171/63
[2018-05-02 18:00] VITALS: BP 152/56
[2018-05-03 00:30] VITALS: BP 156/60
[2018-05-03 05:45] VITALS: BP 187/67
[2018-05-03 12:00] VITALS: BP 155/62
[2018-05-03 18:00] VITALS: BP 174/56
[2018-05-03 23:57] VITALS: BP 166/64
[2018-05-04 05:52] VITALS: BP 184/50
[2018-05-04 06:32] LABS: BASOPHILS 0.6 % (0-2); EOSINOPHILS 1.5 % (0-7); HEMATOCRIT 26.8 % (42.0-54.0); HEMOGLOBIN 8.2 g/dL (13.5-17.5); IMMATURE GRANULOCYTES 4.6 % (0-5); LYMPHOCYTES 14.4 % (15-50); MCH 27.1 pg (26.0-34.0); MCHC 30.6 g/dL (31.0-37.0); MCV 88.4 fL (80.0-100.0); MEAN PLATELET VOLUME 9.5 fL (7.4-10.4); MONOCYTES 13.3 % (2-11); NEUTROPHILS 65.6 % (40-80); PLATELET COUNT 366 10x3/uL (130-400); RBC 3.03 10x6/uL (4.20-6.10); RDW 14.5 % (11.5-14.5); WBC 8.9 10x3/uL (4.8-10.8)
[2018-05-04 06:39] LABS: ALBUMIN 2.1 g/dL (3.4-5.0); ANION GAP 11.8 mmol/L (8-16); BILIRUBIN - TOTAL 0.23 mg/dL (0.2-1.3); CALCIUM 8.5 mg/dL (8.5-10.1); CARBON DIOXIDE 28.3 mmol/L (21.0-32.0); CREATININE - SERUM 3.8 mg/dL (0.6-1.3); POTASSIUM - SERUM 4.1 mmol/L (3.5-5.1); PROTEIN - SERUM 5.9 g/dL (6.4-8.2)
[2018-05-04 12:00] VITALS: BP 165/64
[2018-05-04 18:00] VITALS: BP 189/66
[2018-05-05 00:25] VITALS: BP 168/74
[2018-05-05 06:14] VITALS: BP 217/85
[2018-05-05 07:00] VITALS: BP 189/74
[2018-05-05] MEDS ORDERED: LEVEMIR100 U/M1 SC (09:42)
[2018-05-05] MEDS ORDERED: LASIX40 MG PO (09:44)
[2018-05-05 12:28] VITALS: BP 172/63
[2018-05-05 18:40] VITALS: BP 165/66
[2018-05-05 23:19] VITALS: BP 165/66
[2018-05-06 01:20] VITALS: BP 180/62
[2018-05-06 06:36] VITALS: BP 188/63
[2018-05-06 12:01] VITALS: BP 176/60
[2018-05-06 18:32] VITALS: BP 167/59
[2018-05-07 00:35] VITALS: BP 171/62
[2018-05-07 06:18] LABS: BASOPHILS 0.7 % (0-2); EOSINOPHILS 1.7 % (0-7); HEMATOCRIT 27.9 % (42.0-54.0); HEMOGLOBIN 8.2 g/dL (13.5-17.5); IMMATURE GRANULOCYTES 4.2 % (0-5); LYMPHOCYTES 19.4 % (15-50); MCH 26.1 pg (26.0-34.0); MCHC 29.4 g/dL (31.0-37.0); MCV 88.9 fL (80.0-100.0); MEAN PLATELET VOLUME 9.3 fL (7.4-10.4); MONOCYTES 10.4 % (2-11); NEUTROPHILS 63.6 % (40-80); PLATELET COUNT 360 10x3/uL (130-400); RBC 3.14 10x6/uL (4.20-6.10); RDW 14.5 % (11.5-14.5); WBC 7.7 10x3/uL (4.8-10.8)
[2018-05-07 06:23] VITALS: BP 130/74
[2018-05-07 06:48] LABS: ANION GAP 10.8 mmol/L (8-16); CARBON DIOXIDE 28.3 mmol/L (21.0-32.0); CREATININE - SERUM 4.2 mg/dL (0.6-1.3); POTASSIUM - SERUM 4.1 mmol/L (3.5-5.1)
[2018-05-07 12:00] VITALS: BP 183/61
[2018-05-07 18:00] VITALS: BP 182/65
[2018-05-08 06:39] VITALS: BP 166/60
[2018-05-08 11:45] VITALS: BP 137/71
[2018-05-08] MEDS ORDERED: LEVEMIR100 U/M1 SC (16:20)
[2018-05-08] MEDS ORDERED: CARDURA4 MG PO (16:23)
[2018-05-08] MEDS ORDERED: LASIX40 MG PO (16:26)
[2018-05-08] MEDS ORDERED: PRINIVIL20 MG PO (16:26)
== END 2018-05-08 17:10 | disposition home or self-care (01) | DRG 947 ==
LOC: D.REHAB 17:58
PROVIDERS: Emergency Medicine; Internal Medicine Nephrology
PROC: 5A1D70Z Performance of Urinary Filtration, Intermittent, Less than 6 Hours Per Day (ICD-10-PCS; principal; 2018-04-27)
DX: R53.81 Other malaise (principal); N18.6 End stage renal disease; J18.9 Pneumonia, unspecified organism; K65.9 Peritonitis, unspecified; I12.0 Hypertensive chronic kidney disease with stage 5 chronic kidney disease or end stage renal disease; I82.622 Acute embolism and thrombosis of deep veins of left upper extremity; D62 Acute posthemorrhagic anemia; E11.22 Type 2 diabetes mellitus with diabetic chronic kidney disease; Z99.2 Dependence on renal dialysis; D64.9 Anemia, unspecified; E78.5 Hyperlipidemia, unspecified; I25.10 Atherosclerotic heart disease of native coronary artery without angina pectoris; G89.29 Other chronic pain; M25.551 Pain in right hip; E11.69 Type 2 diabetes mellitus with other specified complication; I70.219 Atherosclerosis of native arteries of extremities with intermittent claudication, unspecified extremity

== ENCOUNTER 2018-05-17 14:09 | Inpatient (IN) | payer MEDICARE ==
[~2018-05-17] VITALS: Ht 177.8 cm; Wt 97.7 kg
--- NOTE | ~2018-05-17 | OP ---
PATIENT NAME: NATHAN ALLAN JR MEDICAL RECORD: [id number] :51 LOCATION:D.M2 D.2129 ADMISSION DATE:05/17/18 SURGEON: TOÑO STACY MD DATE OF OPERATION: 05/22/2018 PREOPERATIVE DIAGNOSES: 1. Secondary bacterial peritonitis. 2. Infected peritoneal dialysis catheter. 3. End-stage renal disease. 4. Hypertension. 5. Diabetes mellitus. 6. Anemia of chronic kidney disease. 7. Coronary artery disease. 8. Hyperlipidemia. POSTOPERATIVE DIAGNOSES: 1. Secondary bacterial peritonitis. 2. Infected peritoneal dialysis catheter. 3. End-stage renal disease. 4. Hypertension. 5. Diabetes mellitus. 6. Anemia of chronic kidney disease. 7. Coronary artery disease. 8. Hyperlipidemia. PROCEDURE: Peritoneal dialysis catheter excision. SURGEON: Toño Stacy MD SHOW HOST OR HOSTESS: Kathi Berkowitz APRN REPORT OF OPERATION: The patient's abdomen and indwelling peritoneal dialysis catheter were prepped and draped in sterile fashion. The cuff at the skin edge was excised using gentle tension and a hemostat. Once we did this, we were able to pull tension and find out where to cut over the top of midline. A small incision was made in the midline just below the umbilicus. We dissected down through the subcutaneous tissues and encountered the distal cuff of the peritoneal dialysis catheter. This was dissected from the surrounding tissues and at this point, the catheter was transected and both ends were removed. I felt around to try and find the peritoneal defect and really could not find the defect anywhere. There was some spillage of ascitic fluid, but this did not appear to be grossly infected. We irrigated out the incisions with hydrogen peroxide. The wounds were then infused with a total of 10 mL of 0.25% Marcaine with epinephrine and closed the midline incision with a subcutaneous layer of 3-0 Vicryl and a running subcutaneous layer of 5-0 Monocryl. COMPLICATIONS: None. CONDITION: Stable. ANESTHESIA: General endotracheal and local. BLOOD LOSS: Minimal. TRANSINT:[id number] Voice Confirmation ID: [id number] DOCUMENT ID: [id number] OPERATIVE REPORT [id number] NATHAN ALLAN JR TOÑO STACY MD at 1418 CC: [id number] DICTATION DATE: 05/22/18 1112 SALES INSPECTOR: 05/22/18 1126 DIS IN 05/24/18 [facility] [address] [place] [address]
[2018-05-17 14:30] VITALS: BP 148/60
[2018-05-17 14:54] LABS: BASOPHILS 0.3 % (0-2); EOSINOPHILS 0.4 % (0-7); HEMATOCRIT 29.1 % (42.0-54.0); HEMOGLOBIN 8.6 g/dL (13.5-17.5); IMMATURE GRANULOCYTES 1.2 % (0-5); LYMPHOCYTES 7.5 % (15-50); MCH 26.5 pg (26.0-34.0); MCHC 29.6 g/dL (31.0-37.0); MCV 89.8 fL (80.0-100.0); MEAN PLATELET VOLUME 9.7 fL (7.4-10.4); MONOCYTES 7.7 % (2-11); NEUTROPHILS 82.9 % (40-80); PLATELET COUNT 372 10x3/uL (130-400); RBC 3.24 10x6/uL (4.20-6.10); RDW 15.3 % (11.5-14.5); WBC 18.1 10x3/uL (4.8-10.8)
[2018-05-17 15:08] LABS: APTT 31.6 SECONDS (22.8-39.4); INR 1.12 (0.85-1.17)
[2018-05-17 15:30] VITALS: BP 153/61
[2018-05-17 16:30] VITALS: BP 153/62
[2018-05-17 16:56] LABS: ALBUMIN 1.9 g/dL (3.4-5.0); BILIRUBIN - TOTAL 0.41 mg/dL (0.2-1.3); CALCIUM 8.4 mg/dL (8.5-10.1); CARBON DIOXIDE 22.7 mmol/L (21.0-32.0); CREATININE - SERUM 4.7 mg/dL (0.6-1.3)
[2018-05-17 16:58] LABS: ANION GAP 17.5 mmol/L (8-16); POTASSIUM - SERUM 5.2 mmol/L (3.5-5.1)
[2018-05-17 17:04] LABS: BILIRUBIN - DIRECT 0.15 mg/dL (0.00-0.30); BILIRUBIN - INDIRECT 0.26 mg/dL (0.00-1.00)
[2018-05-17 17:30] VITALS: BP 148/60
[2018-05-17 18:30] VITALS: BP 126/61
[2018-05-17 22:58] VITALS: BP 168/56
[2018-05-18 00:31] VITALS: BP 168/50
[2018-05-18 06:04] VITALS: BP 151/45
[2018-05-18 06:58] LABS: INR 1.17 (0.85-1.17); PROTIME 14.4 SECONDS (11.6-15.0)
[2018-05-18 07:15] LABS: CALCIUM 8.1 mg/dL (8.5-10.1); CARBON DIOXIDE 18.7 mmol/L (21.0-32.0); CREATININE - SERUM 5.1 mg/dL (0.6-1.3); PHOSPHOROUS 6.1 mg/dL (2.5-4.9)
[2018-05-18 07:26] LABS: BASOPHILS 0.5 % (0-2); EOSINOPHILS 1.3 % (0-7); HEMATOCRIT 25.7 % (42.0-54.0); LYMPHOCYTES 9.1 % (15-50); MCH 26.4 pg (26.0-34.0); MCHC 28.4 g/dL (31.0-37.0); MONOCYTES 7.6 % (2-11); NEUTROPHILS 79.5 % (40-80); PLATELET COUNT 358 10x3/uL (130-400); RBC 2.77 10x6/uL (4.20-6.10); RDW 15.6 % (11.5-14.5); WBC 16.9 10x3/uL (4.8-10.8)
[2018-05-18 07:30] LABS: ANION GAP 22.1 mmol/L (8-16); POTASSIUM - SERUM 5.8 mmol/L (3.5-5.1)
[2018-05-18 07:31] LABS: HEMOGLOBIN 7.3 g/dL (13.5-17.5); MCV 92.8 fL (80.0-100.0)
[2018-05-18 07:53] VITALS: BP 143/56
[2018-05-18 10:19] LABS: APPEARANCE CLEAR (CLEAR); BACTERIA FEW /hpf (NONE SEEN); BILIRUBIN NEGATIVE (NEGATIVE); COLOR YELLOW (YELLOW); EPITHELIAL CELLS 0-5 /hpf (0-5); GLUCOSE 50 mg/dL (NEGATIVE); HYALINE CAST OCC /lpf (NONE SEEN); KETONE NEGATIVE (NEGATIVE); MUCUS <1+ /lpf (NONE SEEN); NITRITE NEGATIVE (NEGATIVE); PROTEIN 2+ mg/dL (NEGATIVE); RED CELLS - URINE OCC /hpf (0-5); SPECIFIC GRAVITY 1.015 (1.005-1.020); UROBILINOGEN NORMAL (NORMAL); WHITE CELLS - URINE OCC /hpf (0-5)
[2018-05-18 10:46] VITALS: Ht 177.8 cm; Wt 97.7 kg
[2018-05-18 11:00] VITALS: BP 144/72
[2018-05-18 20:35] VITALS: BP 141/51
[2018-05-19 00:21] VITALS: BP 147/56
[2018-05-19 05:07] VITALS: BP 130/53
[2018-05-19 05:55] LABS: CALCIUM 8.2 mg/dL (8.5-10.1); CREATININE - SERUM 4.1 mg/dL (0.6-1.3); PHOSPHOROUS 4.6 mg/dL (2.5-4.9)
[2018-05-19 05:58] LABS: BASOPHILS 0.2 % (0-2); EOSINOPHILS 2.7 % (0-7); HEMATOCRIT 23.4 % (42.0-54.0); IMMATURE GRANULOCYTES 2.6 % (0-5); LYMPHOCYTES 9.8 % (15-50); MCH 27.2 pg (26.0-34.0); MCHC 31.2 g/dL (31.0-37.0); MEAN PLATELET VOLUME 9.2 fL (7.4-10.4); MONOCYTES 8.4 % (2-11); NEUTROPHILS 76.3 % (40-80); PLATELET COUNT 344 10x3/uL (130-400); RBC 2.68 10x6/uL (4.20-6.10); RDW 15.1 % (11.5-14.5)
[2018-05-19 06:02] LABS: ANION GAP 15.5 mmol/L (8-16); CARBON DIOXIDE 25.4 mmol/L (21.0-32.0); POTASSIUM - SERUM 4.9 mmol/L (3.5-5.1)
[2018-05-19 06:04] LABS: MCV 87.3 fL (80.0-100.0); WBC 10.4 10x3/uL (4.8-10.8)
[2018-05-19 06:06] LABS: HEMOGLOBIN 7.3 g/dL (13.5-17.5)
[2018-05-19 08:45] VITALS: BP 162/60
[2018-05-19 12:10] VITALS: BP 163/63
[2018-05-19 15:54] VITALS: BP 160/68
[2018-05-19 21:43] VITALS: BP 129/53
[2018-05-20 03:03] VITALS: BP 129/55
[2018-05-20 06:01] VITALS: BP 134/55
[2018-05-20 07:30] LABS: BASOPHILS 0.1 % (0-2); EOSINOPHILS 1.2 % (0-7); HEMATOCRIT 27.3 % (42.0-54.0); HEMOGLOBIN 8.5 g/dL (13.5-17.5); IMMATURE GRANULOCYTES 1.8 % (0-5); LYMPHOCYTES 6.3 % (15-50); MCHC 31.1 g/dL (31.0-37.0); MCV 86.7 fL (80.0-100.0); MEAN PLATELET VOLUME 9.7 fL (7.4-10.4); MONOCYTES 7.3 % (2-11); NEUTROPHILS 83.3 % (40-80); PLATELET COUNT 321 10x3/uL (130-400); RBC 3.15 10x6/uL (4.20-6.10); RDW 14.7 % (11.5-14.5)
[2018-05-20 07:34] LABS: WBC 16.3 10x3/uL (4.8-10.8)
[2018-05-20 07:51] LABS: ANION GAP 11.7 mmol/L (8-16); CALCIUM 8.2 mg/dL (8.5-10.1); CARBON DIOXIDE 27.1 mmol/L (21.0-32.0); CREATININE - SERUM 4.6 mg/dL (0.6-1.3); POTASSIUM - SERUM 4.8 mmol/L (3.5-5.1)
[2018-05-20 08:13] VITALS: BP 149/60
[2018-05-20 11:53] VITALS: BP 133/55
[2018-05-20 15:37] VITALS: BP 146/56
[2018-05-20 20:30] VITALS: BP 125/50
[2018-05-21 00:30] VITALS: BP 120/44
[2018-05-21 04:30] VITALS: BP 145/67
[2018-05-21 05:33] LABS: BASOPHILS 0.2 % (0-2); EOSINOPHILS 1.4 % (0-7); HEMATOCRIT 26.1 % (42.0-54.0); IMMATURE GRANULOCYTES 2.5 % (0-5); LYMPHOCYTES 6.7 % (15-50); MCH 26.6 pg (26.0-34.0); MCHC 30.7 g/dL (31.0-37.0); MCV 86.7 fL (80.0-100.0); MEAN PLATELET VOLUME 9.5 fL (7.4-10.4); MONOCYTES 8.5 % (2-11); NEUTROPHILS 80.7 % (40-80); PLATELET COUNT 317 10x3/uL (130-400); RBC 3.01 10x6/uL (4.20-6.10); RDW 14.9 % (11.5-14.5); WBC 14.5 10x3/uL (4.8-10.8)
[2018-05-21 06:03] LABS: ANION GAP 14.4 mmol/L (8-16); CALCIUM 7.7 mg/dL (8.5-10.1); CARBON DIOXIDE 26.2 mmol/L (21.0-32.0); CREATININE - SERUM 5.2 mg/dL (0.6-1.3); PHOSPHOROUS 5.5 mg/dL (2.5-4.9); POTASSIUM - SERUM 4.6 mmol/L (3.5-5.1); VANCOMYCIN - RANDOM 22.1 ug/mL (10.0-20.0)
[2018-05-21 09:13] VITALS: BP 146/54
[2018-05-21 12:02] VITALS: BP 154/60
[2018-05-22] VITALS (12 sets, daily range): BP systolic 115–171; BP diastolic 51–76
[2018-05-22 05:42] LABS: BASOPHILS 0.3 % (0-2); HEMATOCRIT 25.9 % (42.0-54.0); IMMATURE GRANULOCYTES 4.4 % (0-5); LYMPHOCYTES 8.4 % (15-50); MCH 26.5 pg (26.0-34.0); MCHC 30.9 g/dL (31.0-37.0); MCV 85.8 fL (80.0-100.0); MEAN PLATELET VOLUME 9.4 fL (7.4-10.4); MONOCYTES 8.2 % (2-11); NEUTROPHILS 75.7 % (40-80); PLATELET COUNT 342 10x3/uL (130-400); RBC 3.02 10x6/uL (4.20-6.10); RDW 14.8 % (11.5-14.5); WBC 13.6 10x3/uL (4.8-10.8)
[2018-05-22 05:58] LABS: CALCIUM 7.4 mg/dL (8.5-10.1); CARBON DIOXIDE 29.2 mmol/L (21.0-32.0); CREATININE - SERUM 4.3 mg/dL (0.6-1.3); PHOSPHOROUS 4.3 mg/dL (2.5-4.9); POTASSIUM - SERUM 4.2 mmol/L (3.5-5.1); VANCOMYCIN - RANDOM 15.6 ug/mL (10.0-20.0)
[2018-05-23 01:42] VITALS: BP 137/66
[2018-05-23 05:50] LABS: BASOPHILS 0.4 % (0-2); EOSINOPHILS 3.6 % (0-7); HEMATOCRIT 25.5 % (42.0-54.0); HEMOGLOBIN 7.7 g/dL (13.5-17.5); IMMATURE GRANULOCYTES 3.9 % (0-5); LYMPHOCYTES 9.5 % (15-50); MCH 26.3 pg (26.0-34.0); MCHC 30.2 g/dL (31.0-37.0); MEAN PLATELET VOLUME 9.5 fL (7.4-10.4); MONOCYTES 9.5 % (2-11); NEUTROPHILS 73.1 % (40-80); PLATELET COUNT 357 10x3/uL (130-400); RBC 2.93 10x6/uL (4.20-6.10); WBC 12.2 10x3/uL (4.8-10.8)
[2018-05-23 06:13] VITALS: BP 131/59
[2018-05-23 06:14] LABS: CALCIUM 7.1 mg/dL (8.5-10.1); CREATININE - SERUM 4.8 mg/dL (0.6-1.3)
[2018-05-23 06:19] LABS: PHOSPHOROUS 5.7 mg/dL (2.5-4.9)
[2018-05-23 08:17] VITALS: BP 146/58
[2018-05-23 10:58] VITALS: BP 140/65
[2018-05-23 20:25] VITALS: BP 143/52
[2018-05-24 01:16] VITALS: BP 177/59
[2018-05-24 04:30] VITALS: BP 136/63
[2018-05-24 06:35] LABS: BASOPHILS 0.5 % (0-2); HEMATOCRIT 25.9 % (42.0-54.0); HEMOGLOBIN 7.9 g/dL (13.5-17.5); IMMATURE GRANULOCYTES 3.9 % (0-5); LYMPHOCYTES 8.8 % (15-50); MCH 26.3 pg (26.0-34.0); MCHC 30.5 g/dL (31.0-37.0); MCV 86.3 fL (80.0-100.0); MEAN PLATELET VOLUME 9.5 fL (7.4-10.4); MONOCYTES 10.8 % (2-11); PLATELET COUNT 332 10x3/uL (130-400); RDW 14.8 % (11.5-14.5); WBC 11.7 10x3/uL (4.8-10.8)
[2018-05-24 07:04] LABS: ANION GAP 9.6 mmol/L (8-16); CALCIUM 7.6 mg/dL (8.5-10.1); CARBON DIOXIDE 28.9 mmol/L (21.0-32.0); CREATININE - SERUM 3.8 mg/dL (0.6-1.3); PHOSPHOROUS 4.4 mg/dL (2.5-4.9); POTASSIUM - SERUM 3.5 mmol/L (3.5-5.1); VANCOMYCIN - RANDOM 18.2 ug/mL (10.0-20.0)
[2018-05-24 08:01] VITALS: BP 144/71
[2018-05-24 11:21] VITALS: BP 132/66
[2018-05-24] MEDS ORDERED: FLORAJEN3 CAPS460 MG PO (13:16)
== END 2018-05-24 15:07 | disposition home health service (06) | DRG 981 ==
LOC: D.ER 14:09 → D.M2 18:13 → D.EDHOLD 18:13 → D.M2 20:43
PROVIDERS: Family Medicine; Internal Medicine Nephrology; Surgery
PROC: 0WPG03Z Removal of Infusion Device from Peritoneal Cavity, Open Approach (ICD-10-PCS; principal; 2018-05-22 11:45)
DX: T85.71XA Infection and inflammatory reaction due to peritoneal dialysis catheter, initial encounter (principal); K65.8 Other peritonitis; N18.6 End stage renal disease; I12.0 Hypertensive chronic kidney disease with stage 5 chronic kidney disease or end stage renal disease; K56.7 Ileus, unspecified; B96.89 Other specified bacterial agents as the cause of diseases classified elsewhere; Y83.8 Other surgical procedures as the cause of abnormal reaction of the patient, or of later complication, without mention of misadventure at the time of the procedure; E11.22 Type 2 diabetes mellitus with diabetic chronic kidney disease; E11.65 Type 2 diabetes mellitus with hyperglycemia; Z99.2 Dependence on renal dialysis; E11.40 Type 2 diabetes mellitus with diabetic neuropathy, unspecified; D63.1 Anemia in chronic kidney disease; E87.5 Hyperkalemia; Z95.0 Presence of cardiac pacemaker; Z86.73 Personal history of transient ischemic attack (TIA), and cerebral infarction without residual deficits

== ENCOUNTER 2018-06-04 11:52 | Inpatient (IN) | payer MEDICARE ==
[2018-06-04] VITALS (8 sets, daily range): BP systolic 75–198; BP diastolic 31–71
[~2018-06-04] VITALS: Ht 177.8 cm; Wt 97.3 kg
[~2018-06-04 11:52] MED LIST changes: +FLORAJEN3 CAPS460 MG PO
[2018-06-04 12:50] LABS: BASOPHILS 0.4 % (0-2); EOSINOPHILS 9.2 % (0-7); HEMATOCRIT 28.5 % (42.0-54.0); HEMOGLOBIN 8.5 g/dL (13.5-17.5); IMMATURE GRANULOCYTES 1.3 % (0-5); MCH 25.8 pg (26.0-34.0); MCHC 29.8 g/dL (31.0-37.0); MCV 86.4 fL (80.0-100.0); MEAN PLATELET VOLUME 9.5 fL (7.4-10.4); MONOCYTES 10.2 % (2-11); NEUTROPHILS 64.9 % (40-80); RDW 15.8 % (11.5-14.5); WBC 12.1 10x3/uL (4.8-10.8)
[2018-06-04 12:51] LABS: PLATELET COUNT 427 10x3/uL (130-400)
[2018-06-04 13:06] LABS: ALBUMIN 2.1 g/dL (3.4-5.0); BILIRUBIN - TOTAL 0.35 mg/dL (0.2-1.3); CALCIUM 8.1 mg/dL (8.5-10.1); CARBON DIOXIDE 30.5 mmol/L (21.0-32.0); CREATININE - SERUM 4.1 mg/dL (0.6-1.3); POTASSIUM - SERUM 4.5 mmol/L (3.5-5.1); PROTEIN - SERUM 6.3 g/dL (6.4-8.2)
[2018-06-04 13:21] LABS: APPEARANCE CLEAR (CLEAR); BILIRUBIN NEGATIVE (NEGATIVE); COLOR YELLOW (YELLOW); GLUCOSE NEGATIVE (NEGATIVE); KETONE NEGATIVE (NEGATIVE); NITRITE NEGATIVE (NEGATIVE); PROTEIN 3+ mg/dL (NEGATIVE); UROBILINOGEN NORMAL (NORMAL)
[2018-06-04 13:25] LABS: BACTERIA FEW /hpf (NONE SEEN); MUCUS <1+ /lpf (NONE SEEN); WHITE CELLS - URINE RARE /hpf (0-5)
[2018-06-04 13:26] LABS: EPITHELIAL CELLS OCC /hpf (0-5); RED CELLS - URINE RARE /hpf (0-5); YEAST <1+ /hpf (NONE SEEN)
[2018-06-05 06:57] VITALS: BP 196/75
[2018-06-05 08:03] VITALS: BP 234/92
[2018-06-05 09:51] LABS: BASOPHILS 0.4 % (0-2); EOSINOPHILS 7.4 % (0-7); HEMATOCRIT 26.7 % (42.0-54.0); HEMOGLOBIN 8.1 g/dL (13.5-17.5); IMMATURE GRANULOCYTES 0.9 % (0-5); LYMPHOCYTES 7.8 % (15-50); MCH 26.1 pg (26.0-34.0); MCHC 30.3 g/dL (31.0-37.0); MCV 86.1 fL (80.0-100.0); MEAN PLATELET VOLUME 9.4 fL (7.4-10.4); MONOCYTES 6.9 % (2-11); NEUTROPHILS 76.6 % (40-80); PLATELET COUNT 423 10x3/uL (130-400); RDW 15.7 % (11.5-14.5)
[2018-06-05 09:55] LABS: WBC 16.8 10x3/uL (4.8-10.8)
[2018-06-05 10:06] LABS: ANION GAP 10.1 mmol/L (8-16); CALCIUM 7.9 mg/dL (8.5-10.1); CARBON DIOXIDE 30.4 mmol/L (21.0-32.0); CREATININE - SERUM 4.4 mg/dL (0.6-1.3); POTASSIUM - SERUM 4.5 mmol/L (3.5-5.1)
[2018-06-05 11:20] VITALS: BP 184/81
[2018-06-05 13:15] VITALS: BMI 30.8
[2018-06-05 15:22] VITALS: BP 163/70
[2018-06-05 20:10] VITALS: BP 202/67
[2018-06-06 01:10] VITALS: BP 164/52
[2018-06-06 05:20] VITALS: BP 172/52
[2018-06-06 08:15] VITALS: BP 148/69
[2018-06-06 11:36] VITALS: BP 138/76
[2018-06-06 15:56] VITALS: BP 168/66
[2018-06-06 21:52] VITALS: BP 180/62
[2018-06-07 01:17] VITALS: BP 192/60
[2018-06-07 04:00] VITALS: BP 177/64
[2018-06-07 04:50] LABS: BASOPHILS 0.5 % (0-2); EOSINOPHILS 9.8 % (0-7); HEMOGLOBIN 7.6 g/dL (13.5-17.5); LYMPHOCYTES 16.5 % (15-50); MCH 25.9 pg (26.0-34.0); MCHC 30.4 g/dL (31.0-37.0); MEAN PLATELET VOLUME 9.2 fL (7.4-10.4); NEUTROPHILS 62.2 % (40-80); PLATELET COUNT 307 10x3/uL (130-400); RBC 2.94 10x6/uL (4.20-6.10); RDW 15.8 % (11.5-14.5); WBC 8.2 10x3/uL (4.8-10.8)
[2018-06-07 05:02] LABS: ANION GAP 7.8 mmol/L (8-16); CALCIUM 7.8 mg/dL (8.5-10.1); CARBON DIOXIDE 33.2 mmol/L (21.0-32.0); CREATININE - SERUM 3.4 mg/dL (0.6-1.3)
[2018-06-07 05:13] LABS: BILIRUBIN - DIRECT 0.09 mg/dL (0.00-0.30); BILIRUBIN - INDIRECT 0.18 mg/dL (0.00-1.00); BILIRUBIN - TOTAL 0.27 mg/dL (0.2-1.3); PROTEIN - SERUM 5.6 g/dL (6.4-8.2)
[2018-06-07 08:22] VITALS: BP 141/63
[2018-06-07 11:34] VITALS: BP 169/81
[2018-06-07 15:57] VITALS: BP 165/77
[2018-06-07 21:32] VITALS: BP 189/67
[2018-06-07 22:10] VITALS: Ht 177.8 cm; Wt 97.3 kg
[2018-06-08 01:30] VITALS: BP 183/61
[2018-06-08 06:03] VITALS: BP 184/61
[2018-06-08 06:20] LABS: BASOPHILS 0.5 % (0-2); EOSINOPHILS 9.7 % (0-7); HEMATOCRIT 26.8 % (42.0-54.0); HEMOGLOBIN 8.2 g/dL (13.5-17.5); IMMATURE GRANULOCYTES 0.8 % (0-5); LYMPHOCYTES 15.4 % (15-50); MCH 26.4 pg (26.0-34.0); MCHC 30.6 g/dL (31.0-37.0); MCV 86.2 fL (80.0-100.0); MEAN PLATELET VOLUME 9.7 fL (7.4-10.4); MONOCYTES 10.7 % (2-11); NEUTROPHILS 62.9 % (40-80); PLATELET COUNT 288 10x3/uL (130-400); RBC 3.11 10x6/uL (4.20-6.10); RDW 16.1 % (11.5-14.5); WBC 8.3 10x3/uL (4.8-10.8)
[2018-06-08 06:36] LABS: ANION GAP 10.8 mmol/L (8-16); CALCIUM 7.8 mg/dL (8.5-10.1); CARBON DIOXIDE 26.2 mmol/L (21.0-32.0)
[2018-06-08 08:26] VITALS: BP 118/70
[2018-06-08 12:27] VITALS: BP 190/64
[2018-06-08 16:40] VITALS: BP 175/59
[2018-06-08 21:17] VITALS: BP 197/87
[2018-06-09 01:26] VITALS: BP 206/64
[2018-06-09 05:39] VITALS: BP 186/65
[2018-06-09 05:47] LABS: BASOPHILS 0.6 % (0-2); EOSINOPHILS 8.2 % (0-7); HEMATOCRIT 27.3 % (42.0-54.0); HEMOGLOBIN 8.3 g/dL (13.5-17.5); IMMATURE GRANULOCYTES 0.5 % (0-5); LYMPHOCYTES 12.3 % (15-50); MCH 25.9 pg (26.0-34.0); MCHC 30.4 g/dL (31.0-37.0); MEAN PLATELET VOLUME 9.6 fL (7.4-10.4); MONOCYTES 9.7 % (2-11); NEUTROPHILS 68.7 % (40-80); PLATELET COUNT 291 10x3/uL (130-400); RBC 3.21 10x6/uL (4.20-6.10); RDW 16.1 % (11.5-14.5)
[2018-06-09 05:51] LABS: WBC 10.6 10x3/uL (4.8-10.8)
[2018-06-09 06:06] LABS: ANION GAP 6.9 mmol/L (8-16); CALCIUM 7.9 mg/dL (8.5-10.1); CREATININE - SERUM 4.2 mg/dL (0.6-1.3); POTASSIUM - SERUM 3.9 mmol/L (3.5-5.1)
[2018-06-09 08:57] VITALS: BP 138/74
[2018-06-09 11:51] VITALS: BP 141/67
[2018-06-09 15:51] VITALS: BP 146/63
[2018-06-10] VITALS: BP 182/71
[2018-06-10 04:00] VITALS: BP 208/72
[2018-06-10 08:05] VITALS: BP 197/64
[2018-06-10 11:18] VITALS: BP 168/74
[2018-06-10 15:14] VITALS: BP 144/69
[2018-06-10 20:30] VITALS: BP 105/73
[2018-06-11 00:30] VITALS: BP 110/80
[2018-06-11 04:30] VITALS: BP 137/69
[2018-06-11 04:40] LABS: BASOPHILS 0.6 % (0-2); HEMATOCRIT 24.4 % (42.0-54.0); IMMATURE GRANULOCYTES 0.8 % (0-5); LYMPHOCYTES 15.5 % (15-50); MCH 26.1 pg (26.0-34.0); MCHC 30.7 g/dL (31.0-37.0); MEAN PLATELET VOLUME 9.7 fL (7.4-10.4); MONOCYTES 11.1 % (2-11); PLATELET COUNT 252 10x3/uL (130-400); RBC 2.87 10x6/uL (4.20-6.10); RDW 15.8 % (11.5-14.5)
[2018-06-11 04:41] LABS: HEMOGLOBIN 7.5 g/dL (13.5-17.5); WBC 7.9 10x3/uL (4.8-10.8)
[2018-06-11 04:58] LABS: ANION GAP 6.2 mmol/L (8-16); CALCIUM 7.9 mg/dL (8.5-10.1); CARBON DIOXIDE 31.1 mmol/L (21.0-32.0); CREATININE - SERUM 3.5 mg/dL (0.6-1.3)
[2018-06-11 05:12] LABS: POTASSIUM - SERUM 3.3 mmol/L (3.5-5.1)
[2018-06-11 08:46] VITALS: BP 192/71
[2018-06-11 11:45] VITALS: BP 183/71
[2018-06-11 15:59] VITALS: BP 220/77
[2018-06-11 20:00] VITALS: BP 145/67
[2018-06-12] VITALS: BP 167/66
[2018-06-12 06:37] VITALS: BP 156/70
[2018-06-12] MEDS ORDERED: PROCRIT/EP4000 UNITS SC (08:20)
[2018-06-12] MEDS ORDERED: REGLAN10 MG PO (08:22)
[2018-06-12] MEDS ORDERED: FLAGYL500 MG PO (08:22)
[2018-06-12] MEDS ORDERED: PROCRIT/EP4000 UNITS SQ (09:18)
== END 2018-06-12 12:08 | disposition home health service (06) | DRG 371 ==
LOC: D.ER 11:52 → D.EDHOLD 15:42 → D.M2 15:42 → D.EDHOLD 15:42 → OBSVTIME 15:43 → D.M2 19:37
PROVIDERS: Family Medicine; Internal Medicine Gastroenterology
PROC: 0D9670Z Drainage of Stomach with Drainage Device, Via Natural or Artificial Opening (ICD-10-PCS; 2018-06-08)
PROC: 0DJ08ZZ Inspection of Upper Intestinal Tract, Via Natural or Artificial Opening Endoscopic (ICD-10-PCS; principal; 2018-06-08 17:15)
DX: A04.72 Enterocolitis due to Clostridium difficile, not specified as recurrent (principal); N18.6 End stage renal disease; I12.0 Hypertensive chronic kidney disease with stage 5 chronic kidney disease or end stage renal disease; N17.9 Acute kidney failure, unspecified; K56.7 Ileus, unspecified; E11.22 Type 2 diabetes mellitus with diabetic chronic kidney disease; D63.1 Anemia in chronic kidney disease; I25.10 Atherosclerotic heart disease of native coronary artery without angina pectoris; E11.43 Type 2 diabetes mellitus with diabetic autonomic (poly)neuropathy; K31.84 Gastroparesis; I35.0 Nonrheumatic aortic (valve) stenosis

== ENCOUNTER 2018-08-09 08:06 | Day surgery (SDC) | payer MEDICARE, OTHER ==
[~2018-08-09] VITALS: Ht 177.8 cm; Wt 89.8 kg
--- NOTE | ~2018-08-09 | OP ---
PATIENT NAME: NATHAN ALLAN JR MEDICAL RECORD: [id number] :52 LOCATION:[facility] ADMISSION DATE: SURGEON: JOSE STACY MD DATE OF OPERATION: 08/09/2018 PREOPERATIVE DIAGNOSES: 1. End-stage renal disease. 2. Coronary artery disease. 3. Hypertension. 4. Diabetes mellitus. POSTOPERATIVE DIAGNOSES: 1. End-stage renal disease. 2. Coronary artery disease. 3. Hypertension. 4. Diabetes mellitus. PROCEDURE: Laparoscopic peritoneal dialysis catheter placement. SURGEON: Jose Stacy MD MODULAR SET CREW MEMBER: Kathi Berkowitz APRN REPORT OF PROCEDURE: The patient's abdomen was prepped and draped in sterile fashion. A Veress needle was inserted in the left upper quadrant and the abdomen was insufflated. A 5-mm Visiport trocar was inserted in the left lateral abdomen. Once inside, there was noted to be a significant amount of adhesions, mainly of the omentum to the anterior abdominal wall. We were able to find a few windows through this and we were able to find the Veress needle and there was no sign of any injury to any surrounding structures. We eventually removed the Veress needle and placed another 5-mm trocar in the left upper lateral quadrant. We did a lysis of adhesions and the patient was noted to have some very densely adherent acutely to subacutely inflamed small bowel adherent to the anterior abdominal wall in the midline. We did a very tedious dissection to peel it off of the anterior abdominal wall until we get all the way through into the patient's pelvis and to the right lower quadrant. Once we had done this, then a 5-mm trocar was placed in the right lower quadrant and progressing towards the midline. Through this, we were able to advance a grasper and with this grasper, we were through the skin and into the abdominal cavity. We removed the trocar and grasped the end of the pigtail peritoneal dialysis catheter and pulled into the abdomen. This was placed in the anterior pelvis until the 2 cuffs rested in good position at the skin and the peritoneum. We then irrigated out the abdomen and assured there was no sign of any bleeding. There was no sign of any visceral injuries noted. At this point, the ports and insufflation were then removed. The subcutaneous tissues were infused with 10 mL of 0.25% Marcaine with epinephrine and the skin incisions were closed with subcutaneous 5-0 Monocryl. A 2-0 Prolene was used to suture down the peritoneal dialysis catheter and the wounds were dressed appropriately. COMPLICATIONS: None. CONDITION: Stable. ANESTHESIA: General endotracheal and local. OPERATIVE REPORT [id number] NATHAN ALLAN JR BLOOD LOSS: Minimal. TRANSINT:[id number] Voice Confirmation ID: [id number] DOCUMENT ID: [id number] JOSE STACY MD at 1714 CC: SHIVA MCCRAY and SHERRY LEWIS MD [id number] DICTATION DATE: 08/09/18 1239 DISH TECHNICIAN: 08/09/18 1249 [facility] 08/09/18 [facility] [address] [place] [address]
[~2018-08-09 08:06] MED LIST changes: +FLAGYL500 MG PO; +PROCRIT/EP4000 UNITS SC; +PROCRIT/EP4000 UNITS SQ; +REGLAN10 MG PO
[2018-08-09 08:29] LABS: BASOPHILS 0.5 % (0-2); EOSINOPHILS 1.2 % (0-7); HEMATOCRIT 38.9 % (42.0-54.0); HEMOGLOBIN 12.5 g/dL (13.5-17.5); IMMATURE GRANULOCYTES 0.5 % (0-5); LYMPHOCYTES 20.4 % (15-50); MCH 27.8 pg (26.0-34.0); MCHC 32.1 g/dL (31.0-37.0); MCV 86.6 fL (80.0-100.0); MEAN PLATELET VOLUME 9.3 fL (7.4-10.4); MONOCYTES 10.1 % (2-11); NEUTROPHILS 67.3 % (40-80); PLATELET COUNT 217 10x3/uL (130-400); RBC 4.49 10x6/uL (4.20-6.10); RDW 16.3 % (11.5-14.5); WBC 8.1 10x3/uL (4.8-10.8)
[2018-08-09 08:38] LABS: INR 1.15 (0.85-1.17); PROTIME 14.3 SECONDS (11.6-15.0)
[2018-08-09 08:39] LABS: ANION GAP 10.5 mmol/L (8-16); CARBON DIOXIDE 28.2 mmol/L (21.0-32.0); CREATININE - SERUM 3.9 mg/dL (0.6-1.3); POTASSIUM - SERUM 4.7 mmol/L (3.5-5.1)
[2018-08-09] MEDS ORDERED: GABAPENTIN100 MG PO (10:03)
[2018-08-09] MEDS ORDERED: PHOSLO667 MG PO (10:04)
[2018-08-09] MEDS ORDERED: HYDROCODONE-IB1 EAC3 (10:04)
[2018-08-09] MEDS ORDERED: OMEPRAZOLE40 MG (10:05)
[2018-08-09] MEDS ORDERED: ROCALTROL0.5 MCG PO (10:06)
[2018-08-09] MEDS ORDERED: NEPHRO-VITE RX1 TAB PO (10:06)
[2018-08-09] MEDS ORDERED: XARELTO15 MG PO (10:07)
[2018-08-09 10:12] VITALS: BP 158/72; Ht 177.8 cm; Wt 89.8 kg
[2018-08-09] MEDS ORDERED: NORCO 10-325 TA1 TAB PO (12:35)
== END 2018-08-09 15:15 | disposition home or self-care (01) ==
LOC: D.OPS 08:06
PROVIDERS: Anesthesiology
DX: I12.0 Hypertensive chronic kidney disease with stage 5 chronic kidney disease or end stage renal disease (principal); N18.6 End stage renal disease

== ENCOUNTER 2018-10-11 07:19 | Day surgery (SDC) | payer MEDICARE, OTHER ==
[~2018-10-11] VITALS: Ht 177.8 cm; Wt 88.5 kg
--- NOTE | ~2018-10-11 | OP ---
PATIENT NAME: NATHAN ALLAN JR MEDICAL RECORD: [id number] :52 LOCATION:[facility] ADMISSION DATE: SURGEON: JOSE STACY MD DATE OF OPERATION: 10/11/2018 PREOPERATIVE DIAGNOSES: 1. Nonfunctioning peritoneal dialysis catheter. 2. End-stage renal disease. 3. Hypertension. 4. Diabetes mellitus. POSTOPERATIVE DIAGNOSES: 1. Nonfunctioning peritoneal dialysis catheter. 2. End-stage renal disease. 3. Hypertension. 4. Diabetes mellitus. PROCEDURES: 1. Laparoscopic lysis of adhesions. 2. Repositioning of pelvic peritoneal dialysis catheter. SURGEON: Jose Stacy MD REPORT OF PROCEDURE: The patient's abdomen was prepped and draped in sterile fashion. A Veress needle was inserted in the left upper quadrant and the abdomen was insufflated. An attempt was made to place a 5-mm trocar in the left lateral abdomen. There was significant difficulty with placing this catheter, so I lifted in the subcutaneous space and then placed a 5-mm Visiport trocar in the left upper quadrant. I was able to penetrate into the abdominal cavity. At this point, there was a significant amount of thick and some thin adhesions present. The thin adhesions were more on the lateral aspect of the abdomen. The thicker adhesions were at the small bowel to the anterior abdominal wall medially. I was eventually able to open up a small space and penetrated 5-mm trocar in through the left lateral abdomen under direct visualization. With this, I was able to take down significant amount of adhesions from the left side of the abdomen including the left upper quadrant and the left lower quadrant. A final 5-mm trocar was placed from the medial aspect of the left lower quadrant under direct visualization. With this, I was able to penetrate into the pelvis and take down the adhesions that were visible. The total time it took to perform an adhesiolysis was approximately 60 minutes. The thick adhesions in the midline were taken down carefully with blunt dissection and occasionally sharp dissection. Eventually, we were able to completely free up the pelvis and we were able to visualize the patient's peritoneal dialysis catheter. It was adherent to the sidewall of the abdomen and was completely encased in peritoneum. The catheter was freed up using electrocautery. We were eventually able to pull it out of its sheath and rested it appropriately in the patient's pelvis. It flushed easily. At this point, we inspected the abdomen and assured there was no sign of any succuss. The abdomen appeared to be clean with no signs of any active bleeding. At this point, the ports and insufflation were then removed. The 5-mm trocar sites were all closed with subcutaneous 5-0 Monocryl and the incisions were infused with total of 10 mL of 0.25% Marcaine with epinephrine. COMPLICATIONS: None. OPERATIVE REPORT [id number] NATHAN ALLAN JR CONDITION: Stable. ANESTHESIA: General endotracheal and local. BLOOD LOSS: Minimal. TRANSINT:[id number] Voice Confirmation ID: [id number] DOCUMENT ID: [id number] JOSE STACY MD CC: SHERRY LEWIS MD and DEEDEE DODGE [id number] DICTATION DATE: 10/11/18 1309 RN ACUTE DIALYSIS: 10/11/18 1400 REG [facility] [address] [place] [address]
[~2018-10-11 07:19] MED LIST changes: +HYDROCODONE-IB1 EAC3; +LEVEMIR IN100 UNITS/ SC; +MEGACE40 MG PO; +NEPHRO-VITE RX1 TAB PO; +NORCO 10-325 TA1 TAB PO; +PHOSLO667 MG PO; +ROCALTROL0.5 MCG PO; +XARELTO15 MG PO
[2018-10-11 08:01] LABS: BASOPHILS 0.4 % (0-2); EOSINOPHILS 0.7 % (0-7); HEMATOCRIT 33.3 % (42.0-54.0); HEMOGLOBIN 10.5 g/dL (13.5-17.5); IMMATURE GRANULOCYTES 0.6 % (0-5); MCH 29.5 pg (26.0-34.0); MCHC 31.5 g/dL (31.0-37.0); MCV 93.5 fL (80.0-100.0); MEAN PLATELET VOLUME 10.3 fL (7.4-10.4); MONOCYTES 11.9 % (2-11); NEUTROPHILS 62.4 % (40-80); PLATELET COUNT 252 10x3/uL (130-400); RBC 3.56 10x6/uL (4.20-6.10); RDW 15.1 % (11.5-14.5)
[2018-10-11 08:12] LABS: APTT 26.6 SECONDS (22.8-39.4); INR 1.06 (0.85-1.17); PROTIME 13.3 SECONDS (11.6-15.0)
[2018-10-11 08:14] LABS: ANION GAP 12.3 mmol/L (8-16); CALCIUM 8.1 mg/dL (8.5-10.1); CARBON DIOXIDE 28.9 mmol/L (21.0-32.0); CREATININE - SERUM 3.8 mg/dL (0.6-1.3); POTASSIUM - SERUM 4.2 mmol/L (3.5-5.1)
[2018-10-11 09:15] VITALS: BP 178/64; Ht 177.8 cm; Wt 88.5 kg
[2018-10-11] MEDS ORDERED: NORCO 10-325 TA1 TAB PO (13:04)
== END 2018-10-11 15:30 | disposition home or self-care (01) ==
LOC: D.OPS 07:19 → D.PAN 12:25 → D.OPS 12:25
PROVIDERS: Anesthesiology
DX: T85.898A Other specified complication of other internal prosthetic devices, implants and grafts, initial encounter (principal); K66.0 Peritoneal adhesions (postprocedural) (postinfection); E11.22 Type 2 diabetes mellitus with diabetic chronic kidney disease; I12.0 Hypertensive chronic kidney disease with stage 5 chronic kidney disease or end stage renal disease; N18.6 End stage renal disease; Z99.2 Dependence on renal dialysis; Z01.812 Encounter for preprocedural laboratory examination